=== PATIENT | female | born 1945 | race Caucasian/White ===

== ENCOUNTER 2022-05-01 09:59 | Inpatient (IN) ==
--- NOTE | 2022-05-01 10:26 | DR.AMS ---
HPI Time Seen Time Seen by Provider: 05/01/22 10:25 PCP Primary Care Physician: ABA DAVALOS HPI Comment HPI Comment: PATIENT IS 76YR OLD FEMALE IN ER WITH AMS TIMES ONE DAY. CONFUSE IN TRIAGE. Complaint Cheif Complaint Doctors Comments: AMS TIMES ONE DAY. Chief Complaint:: PT HAS HAD PERIODS OF INTERMITTENT CONFUSION SINCE YESTERDAY AFTERNOON WHERE SHE WILL HAVE PERIODS OF NOT UNDERSTANDING SIMPLE COMMANDS OR RECOGNIZING FAMILIAR ITEMS AROUND HER. AT TRIAGE PT IS ALERT TO PERSON AND PLACE BUT IS UNAWARE OF WHAT HAS BEEN GOING ON TO GET HER TO THE ER TODAY. DENIES ANY PAIN OR RECENT ILLNESS. Self Treatment fo Chief Complaint: PT WAS SEEN IN [facility] YESTERDAY COVID-19 Coronavirus risk:travel/contact w/high risk person: No Has patient experienced Coronavirus symptoms: No Source History Provided: Patient Mode of Arrival Mode of Arrival: Wheelchair Timing Onset of Chief Complaint: 04/30/22 PMH PMH Past Medical History: Yes Past Medical History: COPD and Hypertension Past Medical History Comment: FREQUENT UTI Past Surgical History: Yes Surgical History: Appendectomy and Ortho Surgery Family History History of Family Medical Conditions: Yes Family Medical History: Hypertension Social History Does patient currently use any type of tobacco product: No Have you used tobacco products in the last 12 months: No Type of Tobacco Use: None Does any household member use tobacco: No Alcohol Use: None Do you use any recreational Drugs:: No Lives With: Spouse Lives Where: Home Travel Risk Coronavirus risk:travel/contact w/high risk person: No Has patient experienced Coronavirus symptoms: No Infectious screening In the last 2 months have you had wt loss of >10#?: NO Have you had fever, night sweats or hemotysis?: No Have you traveled outside the country in the last 6 months?: No Isolation: Standard ROS Review of Systems Constitutional: No Symptoms Reported Eyes: No Symptoms Reported ENTM: No Symptoms Reported Respiratoy: No Symptoms Reported Cardiovascular: No Symptoms Reported Gastrointestinal/Abdominal: No Symptoms Reported Genitourinary: No Symptoms Reported Neurological: Other (CONFUSED.) Musculoskeletal: No Symptoms Reported Integumentary: No Symptoms Reported Hematologic/Lymphatic: No Symptoms Reported Endocrine: No Symptoms Reported Psychiatric: No Symptoms Reported All Other Systems: Reviewed and Negative PE Vitals Vital Signs: Temp Pulse Resp BP Pulse Ox O2 Del Method 05/01/22 14:57 20 05/01/22 14:31 75 97 05/01/22 13:30 78 96 05/01/22 13:15 75 95 05/01/22 13:11 76 93 L 05/01/22 11:15 80 94 L 05/01/22 11:04 86 94 L 05/01/22 10:45 95 05/01/22 10:33 72 92 L 05/01/22 10:16 97.6 F 73 20 126/66 97 Room Air General Limitations: No Limitations General Appearance: Alert and In No Apparent Distress Head Head Exam: Normal Inspection and Atraumatic Head Exam Physical: Other (NONE NOTED.) Eyes Eye exam: Normal Appearance; negative Scleral Icterus or Conjunctival Injection Neck Neck Exam: Normal Inspection Chest Chest Inspection: Normal Inspection Respiratory Respiratory Exam: Normal Lung Sounds Bilat Cardiovascular Cardiovascular Exam: Regular Rate Abdominal Exam Abdominal Exam: Normal Inspection Extremities Extremities Exam: Normal Inspection Back Back Exam: Normal Inspection Psychological Psychiatric Exam: Normal Affect Skin Skin Exam: Intact ROR Labs Reviewed Result Diagrams: 05/01/22 11:24 05/01/22 11:56 Laboratory: WBC 12.5 X10^3/uL (3.6-10.0) H 05/01/22 11:24 RBC 4.41 X10^6/uL (3.5-5.4) 05/01/22 11:24 Hgb 13.3 g/dL (12.0-16.0) 05/01/22 11:24 Hct 39.6 % (36.0-47.0) 05/01/22 11:24 MCV 89.7 fL (80.0-100.0) 05/01/22 11:24 MCH 30.1 pg (27.0-34.0) 05/01/22 11:24 MCHC 33.6 g/dL (33.0-35.0) 05/01/22 11:24 RDW 13.4 % (11.6-16.5) 05/01/22 11:24 Plt Count 352 X10^3/uL (150.0-450.0) 05/01/22 11:24 MPV 7.3 fL (7.4-11.0) L 05/01/22 11:24 Neut % (Auto) 74.7 % (42.0-75.0) 05/01/22 11:24 Lymph % (Auto) 15.9 % (21.0-51.0) L 05/01/22 11:24 Hans[place] % (Auto) 7.4 % (0.0-13.0) 05/01/22 11:24 Eos % (Auto) 1.4 % (0.9-2.9) 05/01/22 11:24 Baso % (Auto) 0.6 % (0.2-1.0) 05/01/22 11:24 Neut # (Auto) 9.3 x10^3/uL (2.2-4.8) H 05/01/22 11:24 Lymph # (Auto) 2.0 X10^3/uL (1.3-2.9) 05/01/22 11:24 [place] # (Auto) 0.9 x10^3/uL (0.3-0.8) H 05/01/22 11:24 Eos # (Auto) 0.2 x10^3/uL (0.0-0.2) 05/01/22 11:24 Baso # (Auto) 0.1 X10^3/uL (0.0-0.1) 05/01/22 11:24 Absolute Nucleated RBC 0.0 /100WBC 05/01/22 11:24 Sample Site Rra 05/01/22 11:15 ABG pH 7.500 (7.35-7.45) H 05/01/22 11:15 ABG pCO2 25.0 mmHg (35.0-45.0) L 05/01/22 11:15 ABG pO2 137.0 mmHg (80.0-100.0) H 05/01/22 11:15 ABG HCO3 19.5 mmol/L (22-26) L 05/01/22 11:15 ABG O2 Saturation 99.0 % (90-100) 05/01/22 11:15 ABG Base Excess -2.3 mmol/L (-2.0-2.0) L 05/01/22 11:15 Uriel Test Pos 05/01/22 11:15 A-a Gradient -19.0 mmHg 05/01/22 11:15 FiO2 21.0 05/01/22 11:15 Blood Gas Comments Pt nereida well eb 05/01/22 11:15 Sodium 133 mmol/L (136-145) L 05/01/22 11:56 Corrected Sodium TNP 05/01/22 11:56 Potassium 3.8 mmol/L (3.5-5.1) 05/01/22 11:56 Chloride 99 mmol/L (98-107) 05/01/22 11:56 Carbon Dioxide 23.5 mmol/L (21-32) 05/01/22 11:56 BUN 18 mg/dL (7-18) 05/01/22 11:56 Creatinine 0.88 mg/dL (0.55-1.02) 05/01/22 11:56 Est GFR (MDRD) Af Amer > 60 (>60) 05/01/22 11:56 Est GFR (MDRD) Non-Af > 60 (>60) 05/01/22 11:56 Glucose 85 mg/dL (65-99) 05/01/22 11:56 Calcium 8.8 mg/dL (8.5-10.1) 05/01/22 11:56 Corrected Calcium TNP 05/01/22 11:56 Total Bilirubin 0.60 mg/dL (0.2-1.0) 05/01/22 11:56 AST 27 Units/L (15-37) 05/01/22 11:56 ALT 22 Units/L (12-78) 05/01/22 11:56 Alkaline Phosphatase 99 Units/L (46-116) 05/01/22 11:56 Ammonia < 10 umol/L (11-32) L 05/01/22 11:56 Creatine Kinase 49 Units/L (26-192) 05/01/22 11:56 Troponin I High Sens 10.2 ng/L (4.0-60.0) 05/01/22 11:56 Total Protein 7.2 g/dL (6.4-8.2) 05/01/22 11:56 Albumin 3.8 g/dL (3.4-5.0) 05/01/22 11:56 Globulin 3.4 g/dL (2.5-4.5) 05/01/22 11:56 Albumin/Globulin Ratio 1.1 Ratio (1.1-2.1) 05/01/22 11:56 Specimen Type Clean catch urine 05/01/22 11:39 Urine Color Yellow (YELLOW) 05/01/22 11:39 Urine Appearance Clear (CLEAR) 05/01/22 11:39 Urine pH 6.5 (5.0 - 8.0) 05/01/22 11:39 Ur Specific [place] 1.010 (1.000-1.030) 05/01/22 11:39 Urine Protein 1+ (NEGATIVE) 05/01/22 11:39 Urine Glucose (UA) Negative (NEGATIVE) 05/01/22 11:39 Urine Ketones Negative (NEGATIVE) 05/01/22 11:39 Urine Blood Negative (NEGATIVE) 05/01/22 11:39 Urine Nitrite Negative (NEGATIVE) 05/01/22 11:39 Urine Bilirubin Negative (NEGATIVE) 05/01/22 11:39 Urine Urobilinogen Normal (NORMAL) 05/01/22 11:39 Ur Leukocyte Esterase 3+ (NEGATIVE) 05/01/22 11:39 Urine RBC 0-2 /HPF (0-3) 05/01/22 11:39 Urine WBC 3-5 /HPF (0-5) 05/01/22 11:39 Ur Squamous Epith Cells Few /HPF (NEGATIVE) 05/01/22 11:39 Urine Bacteria Negative /HPF (NEGATIVE) 05/01/22 11:39 Urine Yeast Few /HPF (NEGATIVE) 05/01/22 11:39 Ur Culture Indicated? Yes/culture set up 05/01/22 11:39 Opioid Opioid Risk Tool Age (Pavan box if 16-45): No History of Preadolescent Sexual Abuse: No Total: 0 Total Score Risk Category: Low Risk Copyright: Familia AQUINO predicting aberrant behaviors Discharge Plan Discharge Plan Patient Disposition: 01 HOME, SELF-CARE Condition: Stable Orders to Discharge Patient Discharge Orders: Transfer (Routine); Ordered 05/01/22 Ordered By: DERICK HOPPER
--- NOTE | 2022-05-01 11:13 | CT ---
HISTORYAltered mental statusSTUDYCT brain without contrastCOMPARISONNone availableTECHNIQUEMultiple axial images of the brain were obtained from the skull base to the vertex [without] administration of IV contrast.Dose reduction techniques including Automated Exposure Control (AEC) and adjustment of mA and kV were utlized.FINDINGS[No acute intraparenchymal hemorrhage or mass can be identified.] [No extra-axial fluid collections are seen.] [No alteration in the attenuation of the brain parenchyma can be identified to suggest acute or subacute ischemic change.] Extensive small vessel ischemic changes and age-appropriate atrophy are noted. 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 [The ventricular system is symmetric and nondilated.] [The extracranial structures are grossly unremarkable.]IMPRESSION[No acute intracranial process can be identified.]Electronically signed by: SYLVESTER WINSLOW (May 01, 2022 11:12:08)
--- NOTE | 2022-05-01 11:15 | EKG ---
Test Reason : HTN Blood Pressure : */* mmHG Vent. Rate : 80 BPM Atrial Rate : 80 BPM P-R Int : 210 ms QRS Dur : 80 ms QT Int : 408 ms P-R-T Axes : 60 -43 95 degrees QTc Int : 470 ms Sinus rhythm with 1st degree AV block Possible Left atrial enlargement Left axis deviation Abnormal QRS-T angle, consider primary T wave abnormality Abnormal ECG No previous ECGs available Confirmed by Regan Fang ([id number]) on 05/01/2022 5:41:35 PM Referred By: Confirmed By: Regan Fang
[2022-05-01 11:17] LABS: ABG BASE EXCESS -2.3 mmol/L (-2.0-2.0); ABG HCO3 19.5 mmol/L (22-26)
[2022-05-01 11:19] LABS: ABG ALLEN TEST POS
[2022-05-01 11:36] LABS: BASOPHILS # (AUTO) 0.1 X10^3/uL (0.0-0.1); BASOPHILS % (AUTO) 0.6 % (0.2-1.0); EOSINOPHILS # (AUTO) 0.2 x10^3/uL (0.0-0.2); EOSINOPHILS % (AUTO) 1.4 % (0.9-2.9); HEMATOCRIT 39.6 % (36.0-47.0); HEMOGLOBIN 13.3 g/dL (12.0-16.0); LYMPHOCYTES % (AUTO) 15.9 % (21.0-51.0); MEAN CORPUSCULAR HEMOGLOBIN 30.1 pg (27.0-34.0); MEAN CORPUSCULAR HGB CONC 33.6 g/dL (33.0-35.0); MEAN CORPUSCULAR VOLUME 89.7 fL (80.0-100.0); MEAN PLATELET VOLUME 7.3 fL (7.4-11.0); MONOCYTES # (AUTO) 0.9 x10^3/uL (0.3-0.8); MONOCYTES % (AUTO) 7.4 % (0.0-13.0); NEUTROPHILS # (AUTO) 9.3 x10^3/uL (2.2-4.8); NEUTROPHILS % (AUTO) 74.7 % (42.0-75.0); RED BLOOD COUNT 4.41 X10^6/uL (3.5-5.4); RED CELL DISTRIBUTION WIDTH 13.4 % (11.6-16.5); WHITE BLOOD COUNT 12.5 X10^3/uL (3.6-10.0)
[2022-05-01 11:49] LABS: BILIRUBIN,URINE NEGATIVE (NEGATIVE); BLOOD/HEMOGLOBIN,URINE NEGATIVE (NEGATIVE); GLUCOSE, URINE NEGATIVE (NEGATIVE); KETONES,URINE NEGATIVE (NEGATIVE); LEUKOCYTE ESTERASE ,URINE 3+ (NEGATIVE); NITRITES,URINE NEGATIVE (NEGATIVE); PH,URINE 6.5 (5.0 - 8.0); PROTEIN,URINE 1+ (NEGATIVE); UROBILINOGEN,URINE NORMAL (NORMAL)
[2022-05-01 11:52] LABS: ALANINE AMINOTRANSFERASE 22 Units/L (12-78); ALBUMIN 3.8 g/dL (3.4-5.0); ALKALINE PHOSPHATASE 99 Units/L (46-116); ASPARTATE AMINO TRANSFERASE 27 Units/L (15-37); BLOOD UREA NITROGEN 18 mg/dL (7-18); CALCIUM 8.8 mg/dL (8.5-10.1); CARBON DIOXIDE 23.5 mmol/L (21-32); CHLORIDE 99 mmol/L (98-107); CREATINE KINASE 49 Units/L (26-192); CREATININE 0.88 mg/dL (0.55-1.02); SODIUM 133 mmol/L (136-145); TOTAL PROTEIN 7.2 g/dL (6.4-8.2); eGFR NON BLACK RACES > 60 (>60)
[2022-05-01 12:00] LABS: APPEARANCE,URINE CLEAR (CLEAR); COLOR,URINE YELLOW (YELLOW)
[2022-05-01 12:01] LABS: BACTERIA,URINE NEGATIVE /HPF (NEGATIVE); RBC,URINE 0-2 /HPF (0-3); SQUAMOUS EPITHELIAL CELL,UR FEW /HPF (NEGATIVE); YEAST,URINE FEW /HPF (NEGATIVE)
[2022-05-01 12:23] LABS: AMMONIA < 10 umol/L (11-32)
[2022-05-01] MEDS ORDERED: LEVAQUIN PREMIX IV 500 MG 500 MG/100 ML BAG IV ONE ×2 (15:18→15:23)
--- NOTE | 2022-05-01 16:49 | EKG ---
Test Reason : sob Blood Pressure : */* mmHG Vent. Rate : 64 BPM Atrial Rate : 64 BPM P-R Int : 198 ms QRS Dur : 76 ms QT Int : 438 ms P-R-T Axes : 53 -33 88 degrees QTc Int : 451 ms Normal sinus rhythm Possible Left atrial enlargement Left axis deviation Cannot rule out Anterior infarct , age undetermined Abnormal ECG with 1st degree AV block When compared with ECG of 01-MAY-2022 11:13, (Unconfirmed) No significant change was found Confirmed by Regan Fang ([id number]) on 05/01/2022 5:38:47 PM Referred By: Confirmed By: Regan Fang
[2022-05-01] MEDS: NS 1,000 ML IV 1,000 ML IV SCH (17:01)
[2022-05-01] MEDS ORDERED: LEVAQUIN PREMIX IV 500 MG IV ONE (17:02)
[2022-05-01] MEDS: PROVENTIL NEB TX 0.083% 2.5MG/ 3ML IN PRN (20:58)
--- NOTE | 2022-05-01 23:07 | EKG ---
Test Reason : AMS Blood Pressure : */* mmHG Vent. Rate : 64 BPM Atrial Rate : 64 BPM P-R Int : 204 ms QRS Dur : 88 ms QT Int : 458 ms P-R-T Axes : 49 -10 83 degrees QTc Int : 472 ms Normal sinus rhythm Minimal voltage criteria for LVH, may be normal variant ( Mikel product ) Borderline ECG When compared with ECG of 01-MAY-2022 16:41, Minimal criteria for Anterior infarct are no longer present Confirmed by Regan Fang ([id number]) on 05/03/2022 6:05:38 PM Referred By: Confirmed By: Regan Fang
[2022-05-02] MEDS: NS 1,000 ML IV 1,000 ML IV SCH ×2 (05:13→21:00)
[2022-05-02 06:05] LABS: BASOPHILS # (AUTO) 0.1 X10^3/uL (0.0-0.1); BASOPHILS % (AUTO) 0.9 % (0.2-1.0); EOSINOPHILS # (AUTO) 0.3 x10^3/uL (0.0-0.2); EOSINOPHILS % (AUTO) 2.4 % (0.9-2.9); HEMATOCRIT 36.1 % (36.0-47.0); HEMOGLOBIN 12.2 g/dL (12.0-16.0); LYMPHOCYTES # (AUTO) 2.6 X10^3/uL (1.3-2.9); LYMPHOCYTES % (AUTO) 23.2 % (21.0-51.0); MEAN CORPUSCULAR HEMOGLOBIN 30.4 pg (27.0-34.0); MEAN CORPUSCULAR VOLUME 89.5 fL (80.0-100.0); MEAN PLATELET VOLUME 7.3 fL (7.4-11.0); MONOCYTES # (AUTO) 1.3 x10^3/uL (0.3-0.8); MONOCYTES % (AUTO) 11.1 % (0.0-13.0); NEUTROPHILS # (AUTO) 7.1 x10^3/uL (2.2-4.8); NEUTROPHILS % (AUTO) 62.4 % (42.0-75.0); RED BLOOD COUNT 4.03 X10^6/uL (3.5-5.4); RED CELL DISTRIBUTION WIDTH 13.3 % (11.6-16.5); WHITE BLOOD COUNT 11.3 X10^3/uL (3.6-10.0)
[2022-05-02 06:34] LABS: ALANINE AMINOTRANSFERASE 18 Units/L (12-78); ALBUMIN 3.2 g/dL (3.4-5.0); ALKALINE PHOSPHATASE 86 Units/L (46-116); ASPARTATE AMINO TRANSFERASE 26 Units/L (15-37); BLOOD UREA NITROGEN 19 mg/dL (7-18); CALCIUM 8.3 mg/dL (8.5-10.1); CARBON DIOXIDE 23.7 mmol/L (21-32); CHLORIDE 105 mmol/L (98-107); COR CA(FOR HYPOALB) 8.9 mg/dL (8.5-10.1); CREATININE 0.77 mg/dL (0.55-1.02); SODIUM 137 mmol/L (136-145); TOTAL PROTEIN 6.3 g/dL (6.4-8.2); eGFR NON BLACK RACES > 60 (>60)
[2022-05-02] MEDS: TOPROL XL PO SCH (09:41)
[2022-05-02] MEDS: LEVAQUIN PREMIX IV 500 MG 500 MG/100 ML BAG IV SCH (09:41)
[2022-05-02] MEDS: LIPITOR TAB 10 MG PO SCH (09:41)
[2022-05-02] MEDS: LOVENOX INJ 40 MG SYR SC SCH (14:36)
[2022-05-02] MEDS: PROVENTIL NEB TX 0.083% 2.5MG/ 3ML IN PRN (20:05)
--- NOTE | 2022-05-02 21:41 | DR.H&P ---
H&P History & Physical for Day of: H&P Date: 05/02/22 Chief Complaint Chief Complaint: Altered mental status Dysuria Allergies Allergies Allergy/AdvReac Type Severity Reaction Status Date / Time codeine Allergy Verified 05/01/22 10:21 History of Present Illness History of Present Illness: Pt is a 76 year old female past medical history of COPD and Hypertension presenting with dysuria for the past 3-4 days and per has been gradually getting more confused during that time. Denies fevers, chills. Labs/imaging: Wbc 11.3, Hgb 12.2, Plt 329, Na 137, K 3.7, C reatinine 0.77, Glucose 100, UA consistent with infection, Urine culture pending, CT head was obtained that revealed no acute intracranial findings. Pt is admitted with acute cystitis and altered mental status that is likely related to primary etiology. Will start patient on IVF NS@75ml/h and antibiotics IV levaquin. Restart home medications. Continue to closely monitor and follow up lab in the morning. Past Medical History Past Medical History: COPD and Hypertension Past Surgical History Surgical History: Appendectomy and Ortho Surgery Family History Family Medical History: Hypertension Social History Does patient currently use any type of tobacco product: No (quit 5 years ago) Have you used tobacco products in the last 12 months: No Type of Tobacco Use: None Does any household member use tobacco: No Alcohol Use: None Medications Home Medications: codeine Allergy (Verified 05/01/22 10:21) CONTINUE taking the following medications albuterol sulfate 2.5 mg/3 mL (0.083 %) solution for nebulization 2.5 mg inhalation Q4H PRN 05/01/22 [History] atorvastatin 10 mg tablet 10 mg PO DAILY 05/01/22 [History] cyanocobalamin (vitamin B-12) 1,000 mcg/mL injection solution 1,000 mcg IM Q2W 05/01/22 [History] fluticasone fur. 100 mcg-umeclid 62.5 mcg-vilant 25 mcg inhalat.powder (Trelegy Ellipta) 1 inh inhalation DAILY 05/01/22 [History] metoprolol succinate 25 mg tablet,extended release 24 hr 25 mg PO DAILY 05/01/22 [History] pantoprazole 40 mg tablet,delayed release 40 mg PO DAILY 05/01/22 [History] Labs Result Diagrams: 05/02/22 05:49 05/02/22 05:49 Labs: 05/01/22 11:39 Urine,Clean Catch Urine Culture - Preliminary Laboratory WBC 11.3 X10^3/uL (3.6-10.0) H 05/02/22 05:49 RBC 4.03 X10^6/uL (3.5-5.4) 05/02/22 05:49 Hgb 12.2 g/dL (12.0-16.0) 05/02/22 05:49 Hct 36.1 % (36.0-47.0) 05/02/22 05:49 MCV 89.5 fL (80.0-100.0) 05/02/22 05:49 MCH 30.4 pg (27.0-34.0) 05/02/22 05:49 MCHC 34.0 g/dL (33.0-35.0) 05/02/22 05:49 RDW 13.3 % (11.6-16.5) 05/02/22 05:49 Plt Count 329 X10^3/uL (150.0-450.0) 05/02/22 05:49 MPV 7.3 fL (7.4-11.0) L 05/02/22 05:49 Neut % (Auto) 62.4 % (42.0-75.0) 05/02/22 05:49 Lymph % (Auto) 23.2 % (21.0-51.0) 05/02/22 05:49 [place] % (Auto) 11.1 % (0.0-13.0) 05/02/22 05:49 Eos % (Auto) 2.4 % (0.9-2.9) 05/02/22 05:49 Baso % (Auto) 0.9 % (0.2-1.0) 05/02/22 05:49 Neut # (Auto) 7.1 x10^3/uL (2.2-4.8) H 05/02/22 05:49 Lymph # (Auto) 2.6 X10^3/uL (1.3-2.9) 05/02/22 05:49 [place] # (Auto) 1.3 x10^3/uL (0.3-0.8) H 05/02/22 05:49 Eos # (Auto) 0.3 x10^3/uL (0.0-0.2) H 05/02/22 05:49 Baso # (Auto) 0.1 X10^3/uL (0.0-0.1) 05/02/22 05:49 Absolute Nucleated RBC 0.0 /100WBC 05/02/22 05:49 Sample Site Rra 05/01/22 11:15 ABG pH 7.500 (7.35-7.45) H 05/01/22 11:15 ABG pCO2 25.0 mmHg (35.0-45.0) L 05/01/22 11:15 ABG pO2 137.0 mmHg (80.0-100.0) H 05/01/22 11:15 ABG HCO3 19.5 mmol/L (22-26) L 05/01/22 11:15 ABG O2 Saturation 99.0 % (90-100) 05/01/22 11:15 ABG Base Excess -2.3 mmol/L (-2.0-2.0) L 05/01/22 11:15 Uriel Test Pos 05/01/22 11:15 A-a Gradient -19.0 mmHg 05/01/22 11:15 FiO2 21.0 05/01/22 11:15 Blood Gas Comments Pt nereida well eb 05/01/22 11:15 Sodium 137 mmol/L (136-145) 05/02/22 05:49 Corrected Sodium TNP 05/02/22 05:49 Potassium 3.7 mmol/L (3.5-5.1) 05/02/22 05:49 Chloride 105 mmol/L (98-107) 05/02/22 05:49 Carbon Dioxide 23.7 mmol/L (21-32) 05/02/22 05:49 BUN 19 mg/dL (7-18) H 05/02/22 05:49 Creatinine 0.77 mg/dL (0.55-1.02) 05/02/22 05:49 Est GFR (MDRD) Af Amer > 60 (>60) 05/02/22 05:49 Est GFR (MDRD) Non-Af > 60 (>60) 05/02/22 05:49 Glucose 100 mg/dL (65-99) H 05/02/22 05:49 Calcium 8.3 mg/dL (8.5-10.1) L 05/02/22 05:49 Corrected Calcium 8.9 mg/dL (8.5-10.1) 05/02/22 05:49 Total Bilirubin 0.40 mg/dL (0.2-1.0) 05/02/22 05:49 AST 26 Units/L (15-37) 05/02/22 05:49 ALT 18 Units/L (12-78) 05/02/22 05:49 Alkaline Phosphatase 86 Units/L (46-116) 05/02/22 05:49 Ammonia < 10 umol/L (11-32) L 05/01/22 11:56 Creatine Kinase 50 Units/L (26-192) 05/01/22 16:05 Troponin I High Sens 10.4 ng/L (4.0-60.0) 05/01/22 16:05 Total Protein 6.3 g/dL (6.4-8.2) L 05/02/22 05:49 Albumin 3.2 g/dL (3.4-5.0) L 05/02/22 05:49 Globulin 3.1 g/dL (2.5-4.5) 05/02/22 05:49 Albumin/Globulin Ratio 1.0 Ratio (1.1-2.1) L 05/02/22 05:49 Specimen Type Clean catch urine 05/01/22 11:39 Urine Color Yellow (YELLOW) 05/01/22 11:39 Urine Appearance Clear (CLEAR) 05/01/22 11:39 Urine pH 6.5 (5.0 - 8.0) 05/01/22 11:39 Ur Specific [place] 1.010 (1.000-1.030) 05/01/22 11:39 Urine Protein 1+ (NEGATIVE) 05/01/22 11:39 Urine Glucose (UA) Negative (NEGATIVE) 05/01/22 11:39 Urine Ketones Negative (NEGATIVE) 05/01/22 11:39 Urine Blood Negative (NEGATIVE) 05/01/22 11:39 Urine Nitrite Negative (NEGATIVE) 05/01/22 11:39 Urine Bilirubin Negative (NEGATIVE) 05/01/22 11:39 Urine Urobilinogen Normal (NORMAL) 05/01/22 11:39 Ur Leukocyte Esterase 3+ (NEGATIVE) 05/01/22 11:39 Urine RBC 0-2 /HPF (0-3) 05/01/22 11:39 Urine WBC 3-5 /HPF (0-5) 05/01/22 11:39 Ur Squamous Epith Cells Few /HPF (NEGATIVE) 05/01/22 11:39 Urine Bacteria Negative /HPF (NEGATIVE) 05/01/22 11:39 Urine Yeast Few /HPF (NEGATIVE) 05/01/22 11:39 Ur Culture Indicated? Yes/culture set up 05/01/22 11:39 Review of Systems Constitutional: Weakness Eyes: No Symptoms Reported ENT: No Symptoms Reported Respiratory: No Symptoms Reported Cardiovascular: No Symptoms Reported Gastrointestinal: No Symptoms Reported Genitourinary: Dysuria Musculoskeletal: No Symptoms Reported Skin: No Symptoms Reported Neurological: Confusion Physical Exam Vital Signs: Temperature 97.7 F Pulse Rate [Right Brachial] 84 Pulse Rate 76 Respiratory Rate 20 Blood Pressure [Left Arm] 132/60 Blood Pressure [Right Arm] 182/87 Blood Pressure 126/66 O2 Sat by Pulse Oximetry 98 Oriented: Normal Eyes: Normal Ear: Normal Nose: Normal Throat: Normal Respiratory: Clear Throughout Cardiovascular: Normal : Normal Auscultation: Bowel Sounds: Normal Palpation: Normal Tenderness: Normal Skin: Normal Musculoskeletal: Normal Psychiatric: Normal Mood Description: Calm and Appropriate Affect: Normal Speech Pattern: Clear and Appropriate Assessment/Plan (1) Acute cystitis: Narrative Support Text: IV Levaquin Urine culture pending Status: Acute (2) Altered mental status: Status: Acute Review H&P Reviewed: Yes Patient was examined?: Yes
[2022-05-03 06:21] LABS: ALANINE AMINOTRANSFERASE 19 Units/L (12-78); ALBUMIN 3.3 g/dL (3.4-5.0); ALKALINE PHOSPHATASE 92 Units/L (46-116); ASPARTATE AMINO TRANSFERASE 23 Units/L (15-37); BASOPHILS % (AUTO) 0.4 % (0.2-1.0); BLOOD UREA NITROGEN 12 mg/dL (7-18); CALCIUM 8.5 mg/dL (8.5-10.1); CARBON DIOXIDE 23.3 mmol/L (21-32); CHLORIDE 104 mmol/L (98-107); COR CA(FOR HYPOALB) 9.1 mg/dL (8.5-10.1); CREATININE 0.63 mg/dL (0.55-1.02); EOSINOPHILS # (AUTO) 0.3 x10^3/uL (0.0-0.2); EOSINOPHILS % (AUTO) 2.1 % (0.9-2.9); HEMATOCRIT 34.4 % (36.0-47.0); HEMOGLOBIN 11.9 g/dL (12.0-16.0); LYMPHOCYTES % (AUTO) 16.1 % (21.0-51.0); MEAN CORPUSCULAR HEMOGLOBIN 30.7 pg (27.0-34.0); MEAN CORPUSCULAR HGB CONC 34.6 g/dL (33.0-35.0); MEAN CORPUSCULAR VOLUME 88.7 fL (80.0-100.0); MEAN PLATELET VOLUME 7.4 fL (7.4-11.0); MONOCYTES # (AUTO) 1.5 x10^3/uL (0.3-0.8); MONOCYTES % (AUTO) 12.1 % (0.0-13.0); NEUTROPHILS # (AUTO) 8.6 x10^3/uL (2.2-4.8); NEUTROPHILS % (AUTO) 69.3 % (42.0-75.0); RED BLOOD COUNT 3.88 X10^6/uL (3.5-5.4); RED CELL DISTRIBUTION WIDTH 12.8 % (11.6-16.5); SODIUM 136 mmol/L (136-145); TOTAL PROTEIN 6.5 g/dL (6.4-8.2); WHITE BLOOD COUNT 12.4 X10^3/uL (3.6-10.0); eGFR NON BLACK RACES > 60 (>60)
[2022-05-03] MEDS ORDERED: POTASSIUM CHL 40 MEQ/NS 0.45% 500 ML IV PRN (08:01)
[2022-05-03] MEDS ORDERED: K-RIDER 10 MEQ/NS 100 ML 10 MEQ/100 ML BAG IV PRN (08:01)
[2022-05-03] MEDS ORDERED: POTASSIUM CHL 60 MEQ/NS 0.45% 500 ML IV PRN (08:01)
[2022-05-03] MEDS ORDERED: MICRO K EXTEN CAP 10 MEQ PO PRN (08:01)
[2022-05-03] MEDS ORDERED: POTASSIUM CHLORIDE LIQ 20 MEQ UDC PO PRN (08:01)
[2022-05-03] MEDS: LOVENOX INJ 40 MG SYR SC SCH (08:14)
[2022-05-03] MEDS: LEVAQUIN PREMIX IV 500 MG 500 MG/100 ML BAG IV SCH (08:15)
[2022-05-03] MEDS: TOPROL XL PO SCH (08:16)
[2022-05-03] MEDS: LIPITOR TAB 10 MG PO SCH (08:16)
[2022-05-03] MEDS: K-DUR TAB 20 MEQ PO PRN (08:19)
[2022-05-03] MEDS: PROVENTIL NEB TX 0.083% 2.5MG/ 3ML IN PRN (08:53)
[2022-05-03] MEDS: NS 1,000 ML IV 1,000 ML IV SCH ×2 (09:22→20:55)
[2022-05-03] MEDS: PROTONIX TAB 40 MG PO SCH (09:51)
[2022-05-03] MEDS: MAGNESIUM SULFATE 1 GRAM/100 mL PREMIX 1 G/100 ML BAG IV PRN (09:52)
[2022-05-03] MEDS ORDERED: ZOFRAN INJ 4 MG VIAL ONE (10:05)
[2022-05-03] MEDS: ZOFRAN INJ 4 MG VIAL IVP PRN ×3 (10:06→10:58)
[2022-05-03] MEDS: ZOSYN VIAL 3.375 GRAMS 3.375 G in NS 100 ML IV 100 ML IV SCH ×3 (12:54→22:00)
[2022-05-03] MEDS ORDERED: CATAPRES TAB 0.1 MG PO ONE (19:51)
[2022-05-04 05:35] LABS: BASOPHILS % (AUTO) 0.4 % (0.2-1.0); EOSINOPHILS # (AUTO) 0.1 x10^3/uL (0.0-0.2); EOSINOPHILS % (AUTO) 1.1 % (0.9-2.9); HEMATOCRIT 33.5 % (36.0-47.0); HEMOGLOBIN 11.5 g/dL (12.0-16.0); LYMPHOCYTES % (AUTO) 15.9 % (21.0-51.0); MEAN CORPUSCULAR HEMOGLOBIN 30.6 pg (27.0-34.0); MEAN CORPUSCULAR HGB CONC 34.5 g/dL (33.0-35.0); MEAN CORPUSCULAR VOLUME 88.9 fL (80.0-100.0); MEAN PLATELET VOLUME 7.4 fL (7.4-11.0); MONOCYTES # (AUTO) 1.6 x10^3/uL (0.3-0.8); MONOCYTES % (AUTO) 13.1 % (0.0-13.0); NEUTROPHILS # (AUTO) 8.7 x10^3/uL (2.2-4.8); NEUTROPHILS % (AUTO) 69.5 % (42.0-75.0); RED BLOOD COUNT 3.77 X10^6/uL (3.5-5.4); RED CELL DISTRIBUTION WIDTH 13.3 % (11.6-16.5); WHITE BLOOD COUNT 12.5 X10^3/uL (3.6-10.0)
[2022-05-04 05:55] LABS: ALANINE AMINOTRANSFERASE 24 Units/L (12-78); ALBUMIN 3.2 g/dL (3.4-5.0); ALKALINE PHOSPHATASE 89 Units/L (46-116); ASPARTATE AMINO TRANSFERASE 28 Units/L (15-37); BLOOD UREA NITROGEN 11 mg/dL (7-18); CALCIUM 8.6 mg/dL (8.5-10.1); CARBON DIOXIDE 24.6 mmol/L (21-32); CHLORIDE 101 mmol/L (98-107); COR CA(FOR HYPOALB) 9.2 mg/dL (8.5-10.1); COR NA(FOR HYPERGLY) 133 mmol/L (136-145); CREATININE 0.81 mg/dL (0.55-1.02); MAGNESIUM 1.8 mg/dL (2.0-2.9); SODIUM 133 mmol/L (136-145); TOTAL PROTEIN 6.6 g/dL (6.4-8.2); eGFR NON BLACK RACES > 60 (>60)
[2022-05-04] MEDS: ZOSYN VIAL 3.375 GRAMS 3.375 G in NS 100 ML IV 100 ML IV SCH ×3 (06:00→21:12)
[2022-05-04] MEDS ORDERED: TORADOL 60 MG VIAL IM ONE (08:05)
[2022-05-04] MEDS: TOPROL XL PO SCH (09:07)
[2022-05-04] MEDS: LIPITOR TAB 10 MG PO SCH (09:07)
[2022-05-04] MEDS: LEVAQUIN PREMIX IV 500 MG 500 MG/100 ML BAG IV SCH (09:07)
[2022-05-04] MEDS: LOVENOX INJ 40 MG SYR SC SCH (09:07)
[2022-05-04] MEDS: PROTONIX TAB 40 MG PO SCH (09:07)
[2022-05-04] MEDS ORDERED: MORPHINE SULFATE INJ 2 MG INJ IVP PRN (09:14)
[2022-05-04] MEDS: NS 1,000 ML IV 1,000 ML IV SCH ×2 (09:54→22:00)
[2022-05-04] MEDS: PROVENTIL NEB TX 0.083% 2.5MG/ 3ML IN PRN (13:30)
[2022-05-04] MEDS ORDERED: TYLENOL 325 MG TAB PO PRN (14:27)
[2022-05-04] MEDS ORDERED: COLACE CAP 100 MG PO PRN (14:28)
[2022-05-04] MEDS: NAPROSYN PO PRN (16:04)
[2022-05-04] MEDS ORDERED: CATAPRES TAB 0.1 MG PO ONE (16:50)
--- NOTE | 2022-05-04 17:27 | CT ---
HISTORYLT KNEE PAIN, SWELLING.STUDYLOWER EXT W/O CONCOMPARISONNoneTECHNIQUEMultiple axial images of the left knee were obtained without IV contrast. Coronal and sagittal reformats were made and reviewed. Dose reduction techniques included Automated Exposure Control (AEC) and adjustment of mA and kV.FINDINGSImages were obtained from the distal femur to the proximal tibia.The bones are diffusely demineralized. A large suprapatellar recess joint effusion is present.Intramedullary bone lesion is noted in the proximal tibia extending from the proximal diaphysis more proximally to the articular surface of the medial tibia. Well corticated margins suggests that this may be an old bone infarct. There are chondroid type calcifications internally so the differential diagnosis may be an enchondroma.But there is deformity of the medial tibial plateau suggesting possible fracture. I believe this represents a fracture of articular surface of the medial tibial plateau. The fragment is depressed by about 3 mm. Since this extends into the previously described bone lesion, this is probably pathologic.There are also osteoarthritic changes in all 3 compartments, most severe in the lateral femoral/tibial compartment. No dislocation.IMPRESSION1. Findings suggesting medial tibial plateau depressed fracture2. 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 Large joint effusion4. OsteoarthritisElectronically signed by: Navid Crowley (May 04, 2022 17:26:11)
[2022-05-04] MEDS: RESTORIL CAP 15 MG PO PRN (21:16)
[2022-05-05] MEDS: MAGNESIUM SULFATE 1 GRAM/100 mL PREMIX 1 G/100 ML BAG IV PRN ×2 (00:16→01:26)
[2022-05-05 05:11] LABS: BASOPHILS % (AUTO) 0.3 % (0.2-1.0); EOSINOPHILS # (AUTO) 0.1 x10^3/uL (0.0-0.2); EOSINOPHILS % (AUTO) 1.2 % (0.9-2.9); HEMATOCRIT 30.3 % (36.0-47.0); HEMOGLOBIN 10.5 g/dL (12.0-16.0); LYMPHOCYTES # (AUTO) 2.3 X10^3/uL (1.3-2.9); LYMPHOCYTES % (AUTO) 19.6 % (21.0-51.0); MEAN CORPUSCULAR HEMOGLOBIN 30.7 pg (27.0-34.0); MEAN CORPUSCULAR HGB CONC 34.5 g/dL (33.0-35.0); MEAN CORPUSCULAR VOLUME 88.8 fL (80.0-100.0); MEAN PLATELET VOLUME 7.7 fL (7.4-11.0); MONOCYTES # (AUTO) 1.8 x10^3/uL (0.3-0.8); MONOCYTES % (AUTO) 15.4 % (0.0-13.0); NEUTROPHILS # (AUTO) 7.6 x10^3/uL (2.2-4.8); NEUTROPHILS % (AUTO) 63.5 % (42.0-75.0); RED BLOOD COUNT 3.41 X10^6/uL (3.5-5.4); RED CELL DISTRIBUTION WIDTH 13.1 % (11.6-16.5)
[2022-05-05 05:19] LABS: ALANINE AMINOTRANSFERASE 21 Units/L (12-78); ALBUMIN 2.7 g/dL (3.4-5.0); ALKALINE PHOSPHATASE 74 Units/L (46-116); ASPARTATE AMINO TRANSFERASE 21 Units/L (15-37); BLOOD UREA NITROGEN 9 mg/dL (7-18); CALCIUM 8.2 mg/dL (8.5-10.1); CARBON DIOXIDE 24.3 mmol/L (21-32); CHLORIDE 101 mmol/L (98-107); COR CA(FOR HYPOALB) 9.2 mg/dL (8.5-10.1); CREATININE 0.75 mg/dL (0.55-1.02); MAGNESIUM 2.6 mg/dL (2.0-2.9); SODIUM 134 mmol/L (136-145); TOTAL PROTEIN 5.6 g/dL (6.4-8.2); eGFR NON BLACK RACES > 60 (>60)
[2022-05-05] MEDS: ZOSYN VIAL 3.375 GRAMS 3.375 G in NS 100 ML IV 100 ML IV SCH ×3 (05:22→21:00)
--- NOTE | 2022-05-05 07:34 | PCM.PROG ---
Progress Note Progress Note for Day of Date of Exam: 05/03/22 Subjective Subjective: Pt is a 76 year old female past medical history of COPD and Hypertension admitted for failing outpatient treatment for cystitis and altered mental status. This morning patient is resting in bed. Her states that she is slightly better than yesterday and confusion is improving. No acute events overnight. Labs/imaging: Wbc 12.4, Hgb 11.9, Plt 305, Na 136, K 3.2, Creatinine 0.63, Glucose 107, UA consistent with infection, Urine culture pending, CT head was obtained that revealed no acute intracranial findings. Pt is currently on IVF NS@75ml/h and antibiotics IV levaquin. Home medications have been resumed. Hypokalemia on labs, will replete per protocol. Otherwise, will continue with current treatment plan. Continue to closely monitor and follow up lab in the morning. Past Medical Family Social History Allergies: Allergies codeine Allergy (Verified 05/01/22 10:21) Review of Systems ROS changes noted: See HPI Vital Signs and I&O's Vital Signs: Temperature 97.9 F Pulse Rate [Right Brachial] 76 Pulse Rate 88 Respiratory Rate 18 Blood Pressure [Left Arm] 130/59 Blood Pressure [Right Arm] 182/87 Blood Pressure 126/66 O2 Sat by Pulse Oximetry 100 Intake and Output: Intake & Output 05/02/22 05/03/22 05/04/22 05/05/22 23:59 23:59 23:59 23:59 Intake Total 2379 / 2379 1764 / 1764 2175 / 2175 1160 / 1160 Output Total 1100 / 1100 1500 / 1500 600 / 600 900 / 900 Balance 1279 / 1279 264 / 264 1575 / 1575 260 / 260 Physical Exam Oriented: Normal Eyes: Normal Ear: Normal Nose: Normal Throat: Normal Respiratory: Normal Cardiovascular: Normal : Normal Auscultation: Bowel Sounds: Normal Palpation: Normal Tenderness: Normal Skin: Normal Musculoskeletal: Normal Psychiatric: Normal Mood Description: Calm and Appropriate Affect: Normal Speech Pattern: Clear and Appropriate Laboratory and Diagnostics Result Diagrams: 05/05/22 04:20 05/05/22 04:20 Labs: 05/01/22 11:39 Urine,Clean Catch Urine Culture - Final Laboratory WBC 12.0 X10^3/uL (3.6-10.0) H 05/05/22 04:20 RBC 3.41 X10^6/uL (3.5-5.4) L 05/05/22 04:20 Hgb 10.5 g/dL (12.0-16.0) L 05/05/22 04:20 Hct 30.3 % (36.0-47.0) L 05/05/22 04:20 MCV 88.8 fL (80.0-100.0) 05/05/22 04:20 MCH 30.7 pg (27.0-34.0) 05/05/22 04:20 MCHC 34.5 g/dL (33.0-35.0) 05/05/22 04:20 RDW 13.1 % (11.6-16.5) 05/05/22 04:20 Plt Count 281 X10^3/uL (150.0-450.0) 05/05/22 04:20 MPV 7.7 fL (7.4-11.0) 05/05/22 04:20 Neut % (Auto) 63.5 % (42.0-75.0) 05/05/22 04:20 Lymph % (Auto) 19.6 % (21.0-51.0) L 05/05/22 04:20 [place] % (Auto) 15.4 % (0.0-13.0) H 05/05/22 04:20 Eos % (Auto) 1.2 % (0.9-2.9) 05/05/22 04:20 Baso % (Auto) 0.3 % (0.2-1.0) 05/05/22 04:20 Neut # (Auto) 7.6 x10^3/uL (2.2-4.8) H 05/05/22 04:20 Lymph # (Auto) 2.3 X10^3/uL (1.3-2.9) 05/05/22 04:20 [place] # (Auto) 1.8 x10^3/uL (0.3-0.8) H 05/05/22 04:20 Eos # (Auto) 0.1 x10^3/uL (0.0-0.2) 05/05/22 04:20 Baso # (Auto) 0.0 X10^3/uL (0.0-0.1) 05/05/22 04:20 Absolute Nucleated RBC 0.0 /100WBC 05/05/22 04:20 Sample Site Rra 05/01/22 11:15 ABG pH 7.500 (7.35-7.45) H 05/01/22 11:15 ABG pCO2 25.0 mmHg (35.0-45.0) L 05/01/22 11:15 ABG pO2 137.0 mmHg (80.0-100.0) H 05/01/22 11:15 ABG HCO3 19.5 mmol/L (22-26) L 05/01/22 11:15 ABG O2 Saturation 99.0 % (90-100) 05/01/22 11:15 ABG Base Excess -2.3 mmol/L (-2.0-2.0) L 05/01/22 11:15 Uriel Test Pos 05/01/22 11:15 A-a Gradient -19.0 mmHg 05/01/22 11:15 FiO2 21.0 05/01/22 11:15 Blood Gas Comments Pt nerieda well eb 05/01/22 11:15 Sodium 134 mmol/L (136-145) L 05/05/22 04:20 Corrected Sodium TNP 05/05/22 04:20 Potassium 3.6 mmol/L (3.5-5.1) 05/05/22 04:20 Chloride 101 mmol/L (98-107) 05/05/22 04:20 Carbon Dioxide 24.3 mmol/L (21-32) 05/05/22 04:20 BUN 9 mg/dL (7-18) 05/05/22 04:20 Creatinine 0.75 mg/dL (0.55-1.02) 05/05/22 04:20 Est GFR (MDRD) Af Amer > 60 (>60) 05/05/22 04:20 Est GFR (MDRD) Non-Af > 60 (>60) 05/05/22 04:20 Glucose 110 mg/dL (65-99) H 05/05/22 04:20 Uric Acid 2.5 mg/dL (2.6-6.0) L 05/04/22 15:20 Calcium 8.2 mg/dL (8.5-10.1) L 05/05/22 04:20 Corrected Calcium 9.2 mg/dL (8.5-10.1) 05/05/22 04:20 Magnesium 2.6 mg/dL (2.0-2.9) 05/05/22 04:20 Total Bilirubin 0.50 mg/dL (0.2-1.0) 05/05/22 04:20 AST 21 Units/L (15-37) 05/05/22 04:20 ALT 21 Units/L (12-78) 05/05/22 04:20 Alkaline Phosphatase 74 Units/L (46-116) 05/05/22 04:20 Ammonia < 10 umol/L (11-32) L 05/01/22 11:56 Creatine Kinase 50 Units/L (26-192) 05/01/22 16:05 Troponin I High Sens 10.4 ng/L (4.0-60.0) 05/01/22 16:05 Total Protein 5.6 g/dL (6.4-8.2) L 05/05/22 04:20 Albumin 2.7 g/dL (3.4-5.0) L 05/05/22 04:20 Globulin 2.9 g/dL (2.5-4.5) 05/05/22 04:20 Albumin/Globulin Ratio 0.9 Ratio (1.1-2.1) L 05/05/22 04:20 Specimen Type Clean catch urine 05/01/22 11:39 Urine Color Yellow (YELLOW) 05/01/22 11:39 Urine Appearance Clear (CLEAR) 05/01/22 11:39 Urine pH 6.5 (5.0 - 8.0) 05/01/22 11:39 Ur Specific [place] 1.010 (1.000-1.030) 05/01/22 11:39 Urine Protein 1+ (NEGATIVE) 05/01/22 11:39 Urine Glucose (UA) Negative (NEGATIVE) 05/01/22 11:39 Urine Ketones Negative (NEGATIVE) 05/01/22 11:39 Urine Blood Negative (NEGATIVE) 05/01/22 11:39 Urine Nitrite Negative (NEGATIVE) 05/01/22 11:39 Urine Bilirubin Negative (NEGATIVE) 05/01/22 11:39 Urine Urobilinogen Normal (NORMAL) 05/01/22 11:39 Ur Leukocyte Esterase 3+ (NEGATIVE) 05/01/22 11:39 Urine RBC 0-2 /HPF (0-3) 05/01/22 11:39 Urine WBC 3-5 /HPF (0-5) 05/01/22 11:39 Ur Squamous Epith Cells Few /HPF (NEGATIVE) 05/01/22 11:39 Urine Bacteria Negative /HPF (NEGATIVE) 05/01/22 11:39 Urine Yeast Few /HPF (NEGATIVE) 05/01/22 11:39 Ur Culture Indicated? Yes/culture set up 05/01/22 11:39 Plan (1) Acute cystitis: Status: Acute Narrative Support Text: IV Levaquin. (2) Altered mental status: Status: Acute (3) Hypokalemia: Status: Acute Narrative Support Text: Replete per protocol.
--- NOTE | 2022-05-05 07:44 | PCM.PROG ---
Progress Note Progress Note for Day of Date of Exam: 05/04/22 Subjective Subjective: Pt is a 76 year old female past medical history of COPD and Hypertension admitted for failing outpatient treatment for cystitis and altered mental status. This morning patient is in bed. Her mentation has improved significantly, however she is complaining this morning of her left knee pain. On exam knee there is significant edema of left knee and tender to touch. No erythema or warmth observed. Labs/imaging: Wbc 12.5, Hgb 11.5, Plt 321, Na 133, K 4.1, Creatinine 0.81, Glucose 114, Urine culture greater than three organisms, contaminant. Will add Zosyn to antibiotic regimen. Order CT of left knee for further evaluation and start naproxen and tylenol for pain. Pt does report constipation, will start colace. Will get records from [facility] for urine culture. Pt is currently on IVF NS@75ml/h and antibiotics IV levaquin. Home medications have been resumed. Otherwise, will continue with current treatment plan. Continue to closely monitor and follow up lab in the morning. Past Medical Family Social History Allergies: Allergies codeine Allergy (Verified 05/01/22 10:21) Review of Systems ROS changes noted: see HPI Vital Signs and I&O's Vital Signs: Temperature 97.9 F Pulse Rate [Right Brachial] 76 Pulse Rate 88 Respiratory Rate 18 Blood Pressure [Left Arm] 130/59 Blood Pressure [Right Arm] 182/87 Blood Pressure 126/66 O2 Sat by Pulse Oximetry 100 Intake and Output: Intake & Output 05/02/22 05/03/22 05/04/22 05/05/22 23:59 23:59 23:59 23:59 Intake Total 2379 / 2379 1764 / 1764 2175 / 2175 1160 / 1160 Output Total 1100 / 1100 1500 / 1500 600 / 600 900 / 900 Balance 1279 / 1279 264 / 264 1575 / 1575 260 / 260 Physical Exam Oriented: Normal Eyes: Normal Ear: Normal Nose: Normal Throat: Normal Respiratory: Normal Cardiovascular: Normal : Normal Auscultation: Bowel Sounds: Normal Palpation: Normal Tenderness: Normal Skin: Normal Musculoskeletal: Normal Psychiatric: Normal Mood Description: Calm and Appropriate Affect: Normal Speech Pattern: Clear and Appropriate Laboratory and Diagnostics Result Diagrams: 05/05/22 04:20 05/05/22 04:20 Labs: 05/01/22 11:39 Urine,Clean Catch Urine Culture - Final Laboratory WBC 12.0 X10^3/uL (3.6-10.0) H 05/05/22 04:20 RBC 3.41 X10^6/uL (3.5-5.4) L 05/05/22 04:20 Hgb 10.5 g/dL (12.0-16.0) L 05/05/22 04:20 Hct 30.3 % (36.0-47.0) L 05/05/22 04:20 MCV 88.8 fL (80.0-100.0) 05/05/22 04:20 MCH 30.7 pg (27.0-34.0) 05/05/22 04:20 MCHC 34.5 g/dL (33.0-35.0) 05/05/22 04:20 RDW 13.1 % (11.6-16.5) 05/05/22 04:20 Plt Count 281 X10^3/uL (150.0-450.0) 05/05/22 04:20 MPV 7.7 fL (7.4-11.0) 05/05/22 04:20 Neut % (Auto) 63.5 % (42.0-75.0) 05/05/22 04:20 Lymph % (Auto) 19.6 % (21.0-51.0) L 05/05/22 04:20 [place] % (Auto) 15.4 % (0.0-13.0) H 05/05/22 04:20 Eos % (Auto) 1.2 % (0.9-2.9) 05/05/22 04:20 Baso % (Auto) 0.3 % (0.2-1.0) 05/05/22 04:20 Neut # (Auto) 7.6 x10^3/uL (2.2-4.8) H 05/05/22 04:20 Lymph # (Auto) 2.3 X10^3/uL (1.3-2.9) 05/05/22 04:20 [place] # (Auto) 1.8 x10^3/uL (0.3-0.8) H 05/05/22 04:20 Eos # (Auto) 0.1 x10^3/uL (0.0-0.2) 05/05/22 04:20 Baso # (Auto) 0.0 X10^3/uL (0.0-0.1) 05/05/22 04:20 Absolute Nucleated RBC 0.0 /100WBC 05/05/22 04:20 Sample Site Rra 05/01/22 11:15 ABG pH 7.500 (7.35-7.45) H 05/01/22 11:15 ABG pCO2 25.0 mmHg (35.0-45.0) L 05/01/22 11:15 ABG pO2 137.0 mmHg (80.0-100.0) H 05/01/22 11:15 ABG HCO3 19.5 mmol/L (22-26) L 05/01/22 11:15 ABG O2 Saturation 99.0 % (90-100) 05/01/22 11:15 ABG Base Excess -2.3 mmol/L (-2.0-2.0) L 05/01/22 11:15 Uriel Test Pos 05/01/22 11:15 A-a Gradient -19.0 mmHg 05/01/22 11:15 FiO2 21.0 05/01/22 11:15 Blood Gas Comments Pt nereida well eb 05/01/22 11:15 Sodium 134 mmol/L (136-145) L 05/05/22 04:20 Corrected Sodium TNP 05/05/22 04:20 Potassium 3.6 mmol/L (3.5-5.1) 05/05/22 04:20 Chloride 101 mmol/L (98-107) 05/05/22 04:20 Carbon Dioxide 24.3 mmol/L (21-32) 05/05/22 04:20 BUN 9 mg/dL (7-18) 05/05/22 04:20 Creatinine 0.75 mg/dL (0.55-1.02) 05/05/22 04:20 Est GFR (MDRD) Af Amer > 60 (>60) 05/05/22 04:20 Est GFR (MDRD) Non-Af > 60 (>60) 05/05/22 04:20 Glucose 110 mg/dL (65-99) H 05/05/22 04:20 Uric Acid 2.5 mg/dL (2.6-6.0) L 05/04/22 15:20 Calcium 8.2 mg/dL (8.5-10.1) L 05/05/22 04:20 Corrected Calcium 9.2 mg/dL (8.5-10.1) 05/05/22 04:20 Magnesium 2.6 mg/dL (2.0-2.9) 05/05/22 04:20 Total Bilirubin 0.50 mg/dL (0.2-1.0) 05/05/22 04:20 AST 21 Units/L (15-37) 05/05/22 04:20 ALT 21 Units/L (12-78) 05/05/22 04:20 Alkaline Phosphatase 74 Units/L (46-116) 05/05/22 04:20 Ammonia < 10 umol/L (11-32) L 05/01/22 11:56 Creatine Kinase 50 Units/L (26-192) 05/01/22 16:05 Troponin I High Sens 10.4 ng/L (4.0-60.0) 05/01/22 16:05 Total Protein 5.6 g/dL (6.4-8.2) L 05/05/22 04:20 Albumin 2.7 g/dL (3.4-5.0) L 05/05/22 04:20 Globulin 2.9 g/dL (2.5-4.5) 05/05/22 04:20 Albumin/Globulin Ratio 0.9 Ratio (1.1-2.1) L 05/05/22 04:20 Specimen Type Clean catch urine 05/01/22 11:39 Urine Color Yellow (YELLOW) 05/01/22 11:39 Urine Appearance Clear (CLEAR) 05/01/22 11:39 Urine pH 6.5 (5.0 - 8.0) 05/01/22 11:39 Ur Specific [place] 1.010 (1.000-1.030) 05/01/22 11:39 Urine Protein 1+ (NEGATIVE) 05/01/22 11:39 Urine Glucose (UA) Negative (NEGATIVE) 05/01/22 11:39 Urine Ketones Negative (NEGATIVE) 05/01/22 11:39 Urine Blood Negative (NEGATIVE) 05/01/22 11:39 Urine Nitrite Negative (NEGATIVE) 05/01/22 11:39 Urine Bilirubin Negative (NEGATIVE) 05/01/22 11:39 Urine Urobilinogen Normal (NORMAL) 05/01/22 11:39 Ur Leukocyte Esterase 3+ (NEGATIVE) 05/01/22 11:39 Urine RBC 0-2 /HPF (0-3) 05/01/22 11:39 Urine WBC 3-5 /HPF (0-5) 05/01/22 11:39 Ur Squamous Epith Cells Few /HPF (NEGATIVE) 05/01/22 11:39 Urine Bacteria Negative /HPF (NEGATIVE) 05/01/22 11:39 Urine Yeast Few /HPF (NEGATIVE) 05/01/22 11:39 Ur Culture Indicated? Yes/culture set up 05/01/22 11:39 Plan (1) Acute cystitis: Status: Acute Plan: IV antibiotics (2) Altered mental status: Status: Acute (3) Hypokalemia: Status: Acute
[2022-05-05] MEDS: PROTONIX TAB 40 MG PO SCH (08:42)
[2022-05-05] MEDS: K-DUR TAB 20 MEQ PO PRN (08:42)
[2022-05-05] MEDS: LOVENOX INJ 40 MG SYR SC SCH (08:42)
[2022-05-05] MEDS: LEVAQUIN PREMIX IV 500 MG 500 MG/100 ML BAG IV SCH (08:43)
[2022-05-05] MEDS: LIPITOR TAB 10 MG PO SCH (08:43)
[2022-05-05] MEDS: TOPROL XL PO SCH (08:43)
--- NOTE | 2022-05-05 11:42 | DR.CONSULT ---
CONSULT Consultation for Day of: Date: 05/05/22 Chief Complaint Chief Complaint: Left knee pain Allergies Allergies Allergy/AdvReac Type Severity Reaction Status Date / Time codeine Allergy Verified 05/01/22 10:21 History of Present Illness History of Present Illness: Dorothea is a 76 y/o F admitted to [facility] with the chief complaint of altered mental status and cystitis. I was consulted for Left knee pain. She has a tibial plateau fracture via imaging. Past Medical History Past Medical History: COPD and Hypertension Past Surgical History Surgical History: Appendectomy and Ortho Surgery Family History Family Medical History: Hypertension Social History Does patient currently use any type of tobacco product: No (quit 5 years ago) Have you used tobacco products in the last 12 months: No Type of Tobacco Use: None Does any household member use tobacco: No Alcohol Use: None Medications Home Medications: codeine Allergy (Verified 05/01/22 10:21) CONTINUE taking the following medications albuterol sulfate 2.5 mg/3 mL (0.083 %) solution for nebulization 2.5 mg inhalation Q4H PRN 05/01/22 [History] atorvastatin 10 mg tablet 10 mg PO DAILY 05/01/22 [History] cyanocobalamin (vitamin B-12) 1,000 mcg/mL injection solution 1,000 mcg IM Q2W 05/01/22 [History] fluticasone fur. 100 mcg-umeclid 62.5 mcg-vilant 25 mcg inhalat.powder (Trelegy Ellipta) 1 inh inhalation DAILY 05/01/22 [History] metoprolol succinate 25 mg tablet,extended release 24 hr 25 mg PO DAILY 05/01/22 [History] pantoprazole 40 mg tablet,delayed release 40 mg PO DAILY 05/01/22 [History] Physical Exam Vital Signs: Temperature 98.2 F Pulse Rate [Right Brachial] 84 Pulse Rate 88 Respiratory Rate 18 Blood Pressure [Left Arm] 135/62 Blood Pressure [Right Arm] 182/87 Blood Pressure 126/66 O2 Sat by Pulse Oximetry 94 Plan (1) Acute cystitis: Status: Acute (2) Altered mental status: Status: Acute (3) Hypokalemia: Status: Acute (4) Tibial plateau fracture, left: Status: Acute Narrative Support Text: I reviewed her xrays and CT imaging. She has severe tricompartmental OA and what looks to be a pre-existing well corticated calcific lesion in the proximal tibia. I agree with the differential of enchondroma vs bony infarct. This has likely been present for years as a benign lesion. Her tibial plateau fracture is minimally depressed and I recommend non-operative treatment for this. I re commend she remain in a knee immobilizer for now and be NWB to the LLE. She can follow up with us on an outpatient basis either here or in [place] for further assessment to ensure her fracture heals. For now no surgical indications. Please call with any questions. Dr Lou [phone]
[2022-05-05] MEDS: NAPROSYN PO PRN (11:47)
[2022-05-05] MEDS: PROVENTIL NEB TX 0.083% 2.5MG/ 3ML IN PRN (13:30)
[2022-05-05] MEDS: NS 1,000 ML IV 1,000 ML IV SCH ×3 (16:53→23:40)
[2022-05-05] MEDS: RESTORIL CAP 15 MG PO PRN (20:58)
--- NOTE | 2022-05-06 06:05 | RAD ---
HISTORYKnee painSTUDYPortable left knee two viewsCOMPARISONNoneFINDINGSThere is generalized osteopenia and degenerative narrowing of joint spaces. Soft tissue swelling is present around the joint.There is a large area of intramedullary sclerosis filling the proximal tibia. Sclerotic margins are fairly well defined with no aggressive features, periosteal reaction or pathologic fracture.IMPRESSIONUnusual intramedullary sclerotic lesion in the proximal tibia has benign characteristics. No acute component is demonstrated. Follow-up MRI recommended.Electronically signed by: SHELBY ALLRED (May 06, 2022 06:04:22)
[2022-05-06] MEDS: ZOSYN VIAL 3.375 GRAMS 3.375 G in NS 100 ML IV 100 ML IV SCH ×3 (06:06→21:09)
[2022-05-06 06:14] LABS: BASOPHILS % (AUTO) 0.3 % (0.2-1.0); EOSINOPHILS # (AUTO) 0.1 x10^3/uL (0.0-0.2); EOSINOPHILS % (AUTO) 0.9 % (0.9-2.9); HEMATOCRIT 30.9 % (36.0-47.0); HEMOGLOBIN 10.6 g/dL (12.0-16.0); LYMPHOCYTES # (AUTO) 1.5 X10^3/uL (1.3-2.9); LYMPHOCYTES % (AUTO) 10.2 % (21.0-51.0); MEAN CORPUSCULAR HEMOGLOBIN 30.9 pg (27.0-34.0); MEAN CORPUSCULAR HGB CONC 34.5 g/dL (33.0-35.0); MEAN CORPUSCULAR VOLUME 89.6 fL (80.0-100.0); MEAN PLATELET VOLUME 7.4 fL (7.4-11.0); MONOCYTES % (AUTO) 6.8 % (0.0-13.0); NEUTROPHILS # (AUTO) 12.1 x10^3/uL (2.2-4.8); NEUTROPHILS % (AUTO) 81.8 % (42.0-75.0); RED BLOOD COUNT 3.44 X10^6/uL (3.5-5.4); RED CELL DISTRIBUTION WIDTH 13.5 % (11.6-16.5); WHITE BLOOD COUNT 14.9 X10^3/uL (3.6-10.0)
[2022-05-06 06:35] LABS: ALANINE AMINOTRANSFERASE 29 Units/L (12-78); ALBUMIN 2.6 g/dL (3.4-5.0); ALKALINE PHOSPHATASE 85 Units/L (46-116); ASPARTATE AMINO TRANSFERASE 35 Units/L (15-37); BLOOD UREA NITROGEN 8 mg/dL (7-18); CALCIUM 8.1 mg/dL (8.5-10.1); CARBON DIOXIDE 23.6 mmol/L (21-32); CHLORIDE 103 mmol/L (98-107); COR CA(FOR HYPOALB) 9.2 mg/dL (8.5-10.1); CREATININE 0.75 mg/dL (0.55-1.02); SODIUM 133 mmol/L (136-145); TOTAL PROTEIN 5.8 g/dL (6.4-8.2); eGFR NON BLACK RACES > 60 (>60)
--- NOTE | 2022-05-06 08:37 | PCM.PROG ---
Progress Note Progress Note for Day of Date of Exam: 05/05/22 Subjective Subjective: Pt is a 76 year old female past medical history of COPD and Hypertension admitted for failing outpatient treatment for cystitis and altered mental status. This morning patient is in bed. Her mentation appears back to baseline, she is conversational. Her knee swelling has decreased from yesterday. Labs/imaging: Wbc 12, Hgb 10.5, Plt 281, Na 134, K 3.6, Creatinine 0.75, Glucose 110, Urine culture greater than three organisms, contaminant. CT of left knee was obtained that revealed: 1.Findings suggesting medial tibial plateau depressed fracture. 2. 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 Large joint effusion 4. Osteoarthritis. Pt is currently on IVF NS@75ml/h and antibiotics IV levaquin and Zosyn. Home medications have been resumed. Will consult ortho due to CT findings. Otherwise, will continue with current treatment plan. Continue to closely monitor and follow up labs/imaging. Past Medical Family Social History Allergies: Allergies codeine Allergy (Verified 05/01/22 10:21) Review of Systems ROS changes noted: see HPI Vital Signs and I&O's Vital Signs: Temperature 98.7 F Pulse Rate [Right Brachial] 96 Pulse Rate 89 Respiratory Rate 18 Blood Pressure [Left Arm] 175/80 Blood Pressure [Right Arm] 182/87 Blood Pressure 126/66 O2 Sat by Pulse Oximetry 98 Intake and Output: Intake & Output 05/03/22 05/04/22 05/05/22 05/06/22 23:59 23:59 23:59 23:59 Intake Total 1764 / 1764 2175 / 2175 4857 / 4857 555 / 555 Output Total 1500 / 1500 600 / 600 2100 / 2100 200 / 200 Balance 264 / 264 1575 / 1575 2757 / 2757 355 / 355 Physical Exam Oriented: Normal Eyes: Normal Ear: Normal Nose: Normal Throat: Normal Respiratory: Normal Cardiovascular: Normal : Normal Auscultation: Bowel Sounds: Normal Palpation: Normal Tenderness: Normal Skin: Normal Musculoskeletal: Normal Psychiatric: Normal Mood Description: Calm and Appropriate Affect: Normal Speech Pattern: Clear and Appropriate Laboratory and Diagnostics Result Diagrams: 05/06/22 05:49 05/06/22 05:49 Labs: 05/01/22 11:39 Urine,Clean Catch Urine Culture - Final Laboratory WBC 14.9 X10^3/uL (3.6-10.0) H 05/06/22 05:49 RBC 3.44 X10^6/uL (3.5-5.4) L 05/06/22 05:49 Hgb 10.6 g/dL (12.0-16.0) L 05/06/22 05:49 Hct 30.9 % (36.0-47.0) L 05/06/22 05:49 MCV 89.6 fL (80.0-100.0) 05/06/22 05:49 MCH 30.9 pg (27.0-34.0) 05/06/22 05:49 MCHC 34.5 g/dL (33.0-35.0) 05/06/22 05:49 RDW 13.5 % (11.6-16.5) 05/06/22 05:49 Plt Count 310 X10^3/uL (150.0-450.0) 05/06/22 05:49 MPV 7.4 fL (7.4-11.0) 05/06/22 05:49 Neut % (Auto) 81.8 % (42.0-75.0) H 05/06/22 05:49 Lymph % (Auto) 10.2 % (21.0-51.0) L 05/06/22 05:49 [place] % (Auto) 6.8 % (0.0-13.0) 05/06/22 05:49 Eos % (Auto) 0.9 % (0.9-2.9) 05/06/22 05:49 Baso % (Auto) 0.3 % (0.2-1.0) 05/06/22 05:49 Neut # (Auto) 12.1 x10^3/uL (2.2-4.8) H 05/06/22 05:49 Lymph # (Auto) 1.5 X10^3/uL (1.3-2.9) 05/06/22 05:49 [place] # (Auto) 1.0 x10^3/uL (0.3-0.8) H 05/06/22 05:49 Eos # (Auto) 0.1 x10^3/uL (0.0-0.2) 05/06/22 05:49 Baso # (Auto) 0.0 X10^3/uL (0.0-0.1) 05/06/22 05:49 Absolute Nucleated RBC 0.0 /100WBC 05/06/22 05:49 Sample Site Rra 05/01/22 11:15 ABG pH 7.500 (7.35-7.45) H 05/01/22 11:15 ABG pCO2 25.0 mmHg (35.0-45.0) L 05/01/22 11:15 ABG pO2 137.0 mmHg (80.0-100.0) H 05/01/22 11:15 ABG HCO3 19.5 mmol/L (22-26) L 05/01/22 11:15 ABG O2 Saturation 99.0 % (90-100) 05/01/22 11:15 ABG Base Excess -2.3 mmol/L (-2.0-2.0) L 05/01/22 11:15 Uriel Test Pos 05/01/22 11:15 A-a Gradient -19.0 mmHg 05/01/22 11:15 FiO2 21.0 05/01/22 11:15 Blood Gas Comments Pt nereida well eb 05/01/22 11:15 Sodium 133 mmol/L (136-145) L 05/06/22 05:49 Corrected Sodium TNP 05/06/22 05:49 Potassium 3.5 mmol/L (3.5-5.1) 05/06/22 05:49 Chloride 103 mmol/L (98-107) 05/06/22 05:49 Carbon Dioxide 23.6 mmol/L (21-32) 05/06/22 05:49 BUN 8 mg/dL (7-18) 05/06/22 05:49 Creatinine 0.75 mg/dL (0.55-1.02) 05/06/22 05:49 Est GFR (MDRD) Af Amer > 60 (>60) 05/06/22 05:49 Est GFR (MDRD) Non-Af > 60 (>60) 05/06/22 05:49 Glucose 101 mg/dL (65-99) H 05/06/22 05:49 Uric Acid 2.5 mg/dL (2.6-6.0) L 05/04/22 15:20 Calcium 8.1 mg/dL (8.5-10.1) L 05/06/22 05:49 Corrected Calcium 9.2 mg/dL (8.5-10.1) 05/06/22 05:49 Magnesium 2.6 mg/dL (2.0-2.9) 05/05/22 04:20 Total Bilirubin 0.50 mg/dL (0.2-1.0) 05/06/22 05:49 AST 35 Units/L (15-37) 05/06/22 05:49 ALT 29 Units/L (12-78) 05/06/22 05:49 Alkaline Phosphatase 85 Units/L (46-116) 05/06/22 05:49 Ammonia < 10 umol/L (11-32) L 05/01/22 11:56 Creatine Kinase 50 Units/L (26-192) 05/01/22 16:05 Troponin I High Sens 10.4 ng/L (4.0-60.0) 05/01/22 16:05 Total Protein 5.8 g/dL (6.4-8.2) L 05/06/22 05:49 Albumin 2.6 g/dL (3.4-5.0) L 05/06/22 05:49 Globulin 3.2 g/dL (2.5-4.5) 05/06/22 05:49 Albumin/Globulin Ratio 0.8 Ratio (1.1-2.1) L 05/06/22 05:49 Specimen Type Clean catch urine 05/01/22 11:39 Urine Color Yellow (YELLOW) 05/01/22 11:39 Urine Appearance Clear (CLEAR) 05/01/22 11:39 Urine pH 6.5 (5.0 - 8.0) 05/01/22 11:39 Ur Specific [place] 1.010 (1.000-1.030) 05/01/22 11:39 Urine Protein 1+ (NEGATIVE) 05/01/22 11:39 Urine Glucose (UA) Negative (NEGATIVE) 05/01/22 11:39 Urine Ketones Negative (NEGATIVE) 05/01/22 11:39 Urine Blood Negative (NEGATIVE) 05/01/22 11:39 Urine Nitrite Negative (NEGATIVE) 05/01/22 11:39 Urine Bilirubin Negative (NEGATIVE) 05/01/22 11:39 Urine Urobilinogen Normal (NORMAL) 05/01/22 11:39 Ur Leukocyte Esterase 3+ (NEGATIVE) 05/01/22 11:39 Urine RBC 0-2 /HPF (0-3) 05/01/22 11:39 Urine WBC 3-5 /HPF (0-5) 05/01/22 11:39 Ur Squamous Epith Cells Few /HPF (NEGATIVE) 05/01/22 11:39 Urine Bacteria Negative /HPF (NEGATIVE) 05/01/22 11:39 Urine Yeast Few /HPF (NEGATIVE) 05/01/22 11:39 Ur Culture Indicated? Yes/culture set up 05/01/22 11:39 Plan (1) Acute cystitis: Status: Acute Plan: IV antibiotics (2) Altered mental status: Status: Acute (3) Hypokalemia: Status: Acute (4) Tibial plateau fracture, left: Status: Acute
[2022-05-06] MEDS: LOVENOX INJ 40 MG SYR SC SCH (09:24)
[2022-05-06] MEDS: LEVAQUIN PREMIX IV 500 MG 500 MG/100 ML BAG IV SCH (09:24)
[2022-05-06] MEDS: TOPROL XL PO SCH (09:24)
[2022-05-06] MEDS: LIPITOR TAB 10 MG PO SCH (09:24)
[2022-05-06] MEDS: PROTONIX TAB 40 MG PO SCH (09:24)
--- NOTE | 2022-05-06 11:26 | PCM.PROG ---
Progress Note Progress Note for Day of Date of Exam: 05/06/22 Subjective Subjective: Pt is a 76 year old female past medical history of COPD and Hypertension admitted for failing outpatient treatment for cystitis, altered mental status, and medial tibial depressed fracture on left. This morning patient is resting comfortably in bed. She has no new concerns or complaints. Her mentation is back to baseline, she is conversational. Her knee is not in immobilizer. Labs/imaging: Wbc 14.9, Hgb 10.6, Plt 310, Na 133, K 3.5, Creatinine 0.75, Glucose 101, Urine culture greater than three organisms, contaminant. Pt is currently on IVF NS@75ml/h and antibiotics IV levaquin and Zosyn. Home medications have been resumed. Ortho was consulted due to CT findings, Dr Lou: recommend non-operative treatment for this, remain in a knee immobilizer for now and be NWB to the LLE. She can follow up with outpatient basis with ortho. Recommendations have been placed. 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 Otherwise, will continue with current treatment plan. Continue to closely monitor and follow up labs/imaging. Past Medical Family Social History Allergies: Allergies codeine Allergy (Verified 05/01/22 10:21) Review of Systems ROS changes noted: See HPI Vital Signs and I&O's Vital Signs: Temperature 98.7 F Pulse Rate [Right Brachial] 96 Pulse Rate 103 Respiratory Rate 18 Blood Pressure [Left Arm] 175/80 Blood Pressure [Right Arm] 182/87 Blood Pressure 126/66 O2 Sat by Pulse Oximetry 94 Intake and Output: Intake & Output 05/03/22 05/04/22 05/05/22 05/06/22 23:59 23:59 23:59 23:59 Intake Total 1764 / 1764 2175 / 2175 4857 / 4857 555 / 555 Output Total 1500 / 1500 600 / 600 2100 / 2100 200 / 200 Balance 264 / 264 1575 / 1575 2757 / 2757 355 / 355 Physical Exam Oriented: Normal Eyes: Normal Ear: Normal Nose: Normal Throat: Normal Respiratory: Normal Cardiovascular: Normal : Normal Auscultation: Bowel Sounds: Normal Palpation: Normal Tenderness: Normal Skin: Normal Musculoskeletal: Normal Psychiatric: Normal Mood Description: Calm and Appropriate Affect: Normal Speech Pattern: Clear and Appropriate Laboratory and Diagnostics Result Diagrams: 05/06/22 05:49 05/06/22 05:49 Labs: 05/01/22 11:39 Urine,Clean Catch Urine Culture - Final Laboratory WBC 14.9 X10^3/uL (3.6-10.0) H 05/06/22 05:49 RBC 3.44 X10^6/uL (3.5-5.4) L 05/06/22 05:49 Hgb 10.6 g/dL (12.0-16.0) L 05/06/22 05:49 Hct 30.9 % (36.0-47.0) L 05/06/22 05:49 MCV 89.6 fL (80.0-100.0) 05/06/22 05:49 MCH 30.9 pg (27.0-34.0) 05/06/22 05:49 MCHC 34.5 g/dL (33.0-35.0) 05/06/22 05:49 RDW 13.5 % (11.6-16.5) 05/06/22 05:49 Plt Count 310 X10^3/uL (150.0-450.0) 05/06/22 05:49 MPV 7.4 fL (7.4-11.0) 05/06/22 05:49 Neut % (Auto) 81.8 % (42.0-75.0) H 05/06/22 05:49 Lymph % (Auto) 10.2 % (21.0-51.0) L 05/06/22 05:49 [place] % (Auto) 6.8 % (0.0-13.0) 05/06/22 05:49 Eos % (Auto) 0.9 % (0.9-2.9) 05/06/22 05:49 Baso % (Auto) 0.3 % (0.2-1.0) 05/06/22 05:49 Neut # (Auto) 12.1 x10^3/uL (2.2-4.8) H 05/06/22 05:49 Lymph # (Auto) 1.5 X10^3/uL (1.3-2.9) 05/06/22 05:49 [place] # (Auto) 1.0 x10^3/uL (0.3-0.8) H 05/06/22 05:49 Eos # (Auto) 0.1 x10^3/uL (0.0-0.2) 05/06/22 05:49 Baso # (Auto) 0.0 X10^3/uL (0.0-0.1) 05/06/22 05:49 Absolute Nucleated RBC 0.0 /100WBC 05/06/22 05:49 Sample Site Rra 05/01/22 11:15 ABG pH 7.500 (7.35-7.45) H 05/01/22 11:15 ABG pCO2 25.0 mmHg (35.0-45.0) L 05/01/22 11:15 ABG pO2 137.0 mmHg (80.0-100.0) H 05/01/22 11:15 ABG HCO3 19.5 mmol/L (22-26) L 05/01/22 11:15 ABG O2 Saturation 99.0 % (90-100) 05/01/22 11:15 ABG Base Excess -2.3 mmol/L (-2.0-2.0) L 05/01/22 11:15 Uriel Test Pos 05/01/22 11:15 A-a Gradient -19.0 mmHg 05/01/22 11:15 FiO2 21.0 05/01/22 11:15 Blood Gas Comments Pt nereida well eb 05/01/22 11:15 Sodium 133 mmol/L (136-145) L 05/06/22 05:49 Corrected Sodium TNP 05/06/22 05:49 Potassium 3.5 mmol/L (3.5-5.1) 05/06/22 05:49 Chloride 103 mmol/L (98-107) 05/06/22 05:49 Carbon Dioxide 23.6 mmol/L (21-32) 05/06/22 05:49 BUN 8 mg/dL (7-18) 05/06/22 05:49 Creatinine 0.75 mg/dL (0.55-1.02) 05/06/22 05:49 Est GFR (MDRD) Af Amer > 60 (>60) 05/06/22 05:49 Est GFR (MDRD) Non-Af > 60 (>60) 05/06/22 05:49 Glucose 101 mg/dL (65-99) H 05/06/22 05:49 Uric Acid 2.5 mg/dL (2.6-6.0) L 05/04/22 15:20 Calcium 8.1 mg/dL (8.5-10.1) L 05/06/22 05:49 Corrected Calcium 9.2 mg/dL (8.5-10.1) 05/06/22 05:49 Magnesium 2.6 mg/dL (2.0-2.9) 05/05/22 04:20 Total Bilirubin 0.50 mg/dL (0.2-1.0) 05/06/22 05:49 AST 35 Units/L (15-37) 05/06/22 05:49 ALT 29 Units/L (12-78) 05/06/22 05:49 Alkaline Phosphatase 85 Units/L (46-116) 05/06/22 05:49 Ammonia < 10 umol/L (11-32) L 05/01/22 11:56 Creatine Kinase 50 Units/L (26-192) 05/01/22 16:05 Troponin I High Sens 10.4 ng/L (4.0-60.0) 05/01/22 16:05 Total Protein 5.8 g/dL (6.4-8.2) L 05/06/22 05:49 Albumin 2.6 g/dL (3.4-5.0) L 05/06/22 05:49 Globulin 3.2 g/dL (2.5-4.5) 05/06/22 05:49 Albumin/Globulin Ratio 0.8 Ratio (1.1-2.1) L 05/06/22 05:49 Specimen Type Clean catch urine 05/01/22 11:39 Urine Color Yellow (YELLOW) 05/01/22 11:39 Urine Appearance Clear (CLEAR) 05/01/22 11:39 Urine pH 6.5 (5.0 - 8.0) 05/01/22 11:39 Ur Specific [place] 1.010 (1.000-1.030) 05/01/22 11:39 Urine Protein 1+ (NEGATIVE) 05/01/22 11:39 Urine Glucose (UA) Negative (NEGATIVE) 05/01/22 11:39 Urine Ketones Negative (NEGATIVE) 05/01/22 11:39 Urine Blood Negative (NEGATIVE) 05/01/22 11:39 Urine Nitrite Negative (NEGATIVE) 05/01/22 11:39 Urine Bilirubin Negative (NEGATIVE) 05/01/22 11:39 Urine Urobilinogen Normal (NORMAL) 05/01/22 11:39 Ur Leukocyte Esterase 3+ (NEGATIVE) 05/01/22 11:39 Urine RBC 0-2 /HPF (0-3) 05/01/22 11:39 Urine WBC 3-5 /HPF (0-5) 05/01/22 11:39 Ur Squamous Epith Cells Few /HPF (NEGATIVE) 05/01/22 11:39 Urine Bacteria Negative /HPF (NEGATIVE) 05/01/22 11:39 Urine Yeast Few /HPF (NEGATIVE) 05/01/22 11:39 Ur Culture Indicated? Yes/culture set up 05/01/22 11:39 Plan (1) Acute cystitis: Status: Acute Plan: IV antibiotics (2) Altered mental status: Status: Acute (3) Hypokalemia: Status: Acute (4) Tibial plateau fracture, left: Status: Acute
[2022-05-06] MEDS: NS 1,000 ML IV 1,000 ML IV SCH ×2 (11:50→16:24)
[2022-05-06] MEDS: PROVENTIL NEB TX 0.083% 2.5MG/ 3ML IN PRN (13:22)
[2022-05-06] MEDS: RESTORIL CAP 15 MG PO PRN (21:09)
[2022-05-06] MEDS ORDERED: CATAPRES TAB 0.1 MG PO ONE (23:53)
[2022-05-07] MEDS: NS 1,000 ML IV 1,000 ML IV SCH ×4 (00:36→15:25)
[2022-05-07 05:19] LABS: BASOPHILS % (AUTO) 0.3 % (0.2-1.0); EOSINOPHILS # (AUTO) 0.2 x10^3/uL (0.0-0.2); EOSINOPHILS % (AUTO) 1.9 % (0.9-2.9); HEMATOCRIT 27.1 % (36.0-47.0); HEMOGLOBIN 9.3 g/dL (12.0-16.0); LYMPHOCYTES # (AUTO) 2.3 X10^3/uL (1.3-2.9); LYMPHOCYTES % (AUTO) 17.9 % (21.0-51.0); MEAN CORPUSCULAR HEMOGLOBIN 30.5 pg (27.0-34.0); MEAN CORPUSCULAR HGB CONC 34.4 g/dL (33.0-35.0); MEAN CORPUSCULAR VOLUME 88.9 fL (80.0-100.0); MEAN PLATELET VOLUME 7.3 fL (7.4-11.0); MONOCYTES # (AUTO) 1.4 x10^3/uL (0.3-0.8); MONOCYTES % (AUTO) 10.8 % (0.0-13.0); NEUTROPHILS # (AUTO) 8.8 x10^3/uL (2.2-4.8); NEUTROPHILS % (AUTO) 69.1 % (42.0-75.0); RED BLOOD COUNT 3.05 X10^6/uL (3.5-5.4); RED CELL DISTRIBUTION WIDTH 13.5 % (11.6-16.5); WHITE BLOOD COUNT 12.8 X10^3/uL (3.6-10.0)
[2022-05-07 06:04] LABS: ALANINE AMINOTRANSFERASE 34 Units/L (12-78); ALBUMIN 2.1 g/dL (3.4-5.0); ALKALINE PHOSPHATASE 90 Units/L (46-116); ASPARTATE AMINO TRANSFERASE 37 Units/L (15-37); BLOOD UREA NITROGEN 8 mg/dL (7-18); CARBON DIOXIDE 23.3 mmol/L (21-32); CHLORIDE 104 mmol/L (98-107); COR CA(FOR HYPOALB) 9.5 mg/dL (8.5-10.1); CREATININE 0.77 mg/dL (0.55-1.02); SODIUM 134 mmol/L (136-145); TOTAL PROTEIN 5.2 g/dL (6.4-8.2); eGFR NON BLACK RACES > 60 (>60)
[2022-05-07] MEDS: ZOSYN VIAL 3.375 GRAMS 3.375 G in NS 100 ML IV 100 ML IV SCH ×3 (06:10→21:00)
[2022-05-07] MEDS: PROTONIX TAB 40 MG PO SCH (09:14)
[2022-05-07] MEDS: TOPROL XL PO SCH (09:14)
[2022-05-07] MEDS: LIPITOR TAB 10 MG PO SCH (09:15)
[2022-05-07] MEDS: LEVAQUIN PREMIX IV 500 MG 500 MG/100 ML BAG IV SCH (09:15)
[2022-05-07] MEDS: LOVENOX INJ 40 MG SYR SC SCH (09:15)
[2022-05-07] MEDS: KLOR-CON PO PRN (09:16)
[2022-05-07] MEDS: MAGNESIUM SULFATE 1 GRAM/100 mL PREMIX 1 G/100 ML BAG IV PRN ×2 (10:43→11:52)
--- NOTE | 2022-05-07 11:06 | PCM.PROG ---
Progress Note Progress Note for Day of Date of Exam: 05/07/22 Subjective Subjective: Pt is a 76 year old female past medical history of COPD and Hypertension admitted for failing outpatient treatment for cystitis, altered mental status, and medial tibial depressed fracture on left. No concerns this morning. No acute events overnight. Her knee is in an immobilizer. Labs/imaging: Wbc 12.8, Hgb 9.3, Plt 309, Na 134, K 2.9, Creatinine 0.77, Glucose 102, Urine culture greater than three organisms, contaminant. Pt is currently on IVF NS@75ml/h and antibiotics IV levaquin and Zosyn. Home medications have been resumed. Ortho was consulted due to CT findings, Dr Lou: recommend non- operative treatment for this, remain in a knee immobilizer for now and be NWB to the LLE. She can follow up with outpatient basis with ortho. Recommendations have been placed. 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 Replete potassium per protocol. Otherwise, will continue with current treatment plan. Continue to closely monitor and follow up labs/imaging. Past Medical Family Social History Allergies: Allergies codeine Allergy (Verified 05/01/22 10:21) Review of Systems ROS changes noted: see HPI Vital Signs and I&O's Vital Signs: Temperature 98.6 F Pulse Rate [Right Brachial] 86 Pulse Rate 83 Respiratory Rate 20 Blood Pressure [Left Arm] 158/77 Blood Pressure [Right Arm] 182/87 Blood Pressure 126/66 O2 Sat by Pulse Oximetry 94 Intake and Output: Intake & Output 05/04/22 05/05/22 05/06/22 05/08/22 23:59 23:59 23:59 00:59 Intake Total 2175 / 2175 4857 / 4857 2937 / 2937 513 / 513 Output Total 600 / 600 2100 / 2100 500 / 500 100 / 100 Balance 1575 / 1575 2757 / 2757 2437 / 2437 413 / 413 Physical Exam Oriented: Normal Eyes: Normal Ear: Normal Nose: Normal Throat: Normal Respiratory: Normal Cardiovascular: Normal : Normal Auscultation: Bowel Sounds: Normal Palpation: Normal Tenderness: Normal Skin: Normal Musculoskeletal: Normal Psychiatric: Normal Mood Description: Calm and Appropriate Affect: Normal Speech Pattern: Clear and Appropriate Laboratory and Diagnostics Result Diagrams: 05/07/22 04:45 05/07/22 04:45 Labs: 05/01/22 11:39 Urine,Clean Catch Urine Culture - Final Laboratory WBC 12.8 X10^3/uL (3.6-10.0) H 05/07/22 04:45 RBC 3.05 X10^6/uL (3.5-5.4) L 05/07/22 04:45 Hgb 9.3 g/dL (12.0-16.0) L 05/07/22 04:45 Hct 27.1 % (36.0-47.0) L 05/07/22 04:45 MCV 88.9 fL (80.0-100.0) 05/07/22 04:45 MCH 30.5 pg (27.0-34.0) 05/07/22 04:45 MCHC 34.4 g/dL (33.0-35.0) 05/07/22 04:45 RDW 13.5 % (11.6-16.5) 05/07/22 04:45 Plt Count 309 X10^3/uL (150.0-450.0) 05/07/22 04:45 MPV 7.3 fL (7.4-11.0) L 05/07/22 04:45 Neut % (Auto) 69.1 % (42.0-75.0) 05/07/22 04:45 Lymph % (Auto) 17.9 % (21.0-51.0) L 05/07/22 04:45 [place] % (Auto) 10.8 % (0.0-13.0) 05/07/22 04:45 Eos % (Auto) 1.9 % (0.9-2.9) 05/07/22 04:45 Baso % (Auto) 0.3 % (0.2-1.0) 05/07/22 04:45 Neut # (Auto) 8.8 x10^3/uL (2.2-4.8) H 05/07/22 04:45 Lymph # (Auto) 2.3 X10^3/uL (1.3-2.9) 05/07/22 04:45 [place] # (Auto) 1.4 x10^3/uL (0.3-0.8) H 05/07/22 04:45 Eos # (Auto) 0.2 x10^3/uL (0.0-0.2) 05/07/22 04:45 Baso # (Auto) 0.0 X10^3/uL (0.0-0.1) 05/07/22 04:45 Absolute Nucleated RBC 0.0 /100WBC 05/07/22 04:45 Sample Site Rra 05/01/22 11:15 ABG pH 7.500 (7.35-7.45) H 05/01/22 11:15 ABG pCO2 25.0 mmHg (35.0-45.0) L 05/01/22 11:15 ABG pO2 137.0 mmHg (80.0-100.0) H 05/01/22 11:15 ABG HCO3 19.5 mmol/L (22-26) L 05/01/22 11:15 ABG O2 Saturation 99.0 % (90-100) 05/01/22 11:15 ABG Base Excess -2.3 mmol/L (-2.0-2.0) L 05/01/22 11:15 Uriel Test Pos 05/01/22 11:15 A-a Gradient -19.0 mmHg 05/01/22 11:15 FiO2 21.0 05/01/22 11:15 Blood Gas Comments Pt nereida well eb 05/01/22 11:15 Sodium 134 mmol/L (136-145) L 05/07/22 04:45 Corrected Sodium TNP 05/07/22 04:45 Potassium 2.9 mmol/L (3.5-5.1) L* 05/07/22 04:45 Chloride 104 mmol/L (98-107) 05/07/22 04:45 Carbon Dioxide 23.3 mmol/L (21-32) 05/07/22 04:45 BUN 8 mg/dL (7-18) 05/07/22 04:45 Creatinine 0.77 mg/dL (0.55-1.02) 05/07/22 04:45 Est GFR (MDRD) Af Amer > 60 (>60) 05/07/22 04:45 Est GFR (MDRD) Non-Af > 60 (>60) 05/07/22 04:45 Glucose 102 mg/dL (65-99) H 05/07/22 04:45 Uric Acid 2.5 mg/dL (2.6-6.0) L 05/04/22 15:20 Calcium 8.0 mg/dL (8.5-10.1) L 05/07/22 04:45 Corrected Calcium 9.5 mg/dL (8.5-10.1) 05/07/22 04:45 Magnesium 1.7 mg/dL (2.0-2.9) L 05/07/22 04:45 Total Bilirubin 0.50 mg/dL (0.2-1.0) 05/07/22 04:45 AST 37 Units/L (15-37) 05/07/22 04:45 ALT 34 Units/L (12-78) 05/07/22 04:45 Alkaline Phosphatase 90 Units/L (46-116) 05/07/22 04:45 Ammonia < 10 umol/L (11-32) L 05/01/22 11:56 Creatine Kinase 50 Units/L (26-192) 05/01/22 16:05 Troponin I High Sens 10.4 ng/L (4.0-60.0) 05/01/22 16:05 Total Protein 5.2 g/dL (6.4-8.2) L 05/07/22 04:45 Albumin 2.1 g/dL (3.4-5.0) L 05/07/22 04:45 Globulin 3.1 g/dL (2.5-4.5) 05/07/22 04:45 Albumin/Globulin Ratio 0.7 Ratio (1.1-2.1) L 05/07/22 04:45 Specimen Type Clean catch urine 05/01/22 11:39 Urine Color Yellow (YELLOW) 05/01/22 11:39 Urine Appearance Clear (CLEAR) 05/01/22 11:39 Urine pH 6.5 (5.0 - 8.0) 05/01/22 11:39 Ur Specific [place] 1.010 (1.000-1.030) 05/01/22 11:39 Urine Protein 1+ (NEGATIVE) 05/01/22 11:39 Urine Glucose (UA) Negative (NEGATIVE) 05/01/22 11:39 Urine Ketones Negative (NEGATIVE) 05/01/22 11:39 Urine Blood Negative (NEGATIVE) 05/01/22 11:39 Urine Nitrite Negative (NEGATIVE) 05/01/22 11:39 Urine Bilirubin Negative (NEGATIVE) 05/01/22 11:39 Urine Urobilinogen Normal (NORMAL) 05/01/22 11:39 Ur Leukocyte Esterase 3+ (NEGATIVE) 05/01/22 11:39 Urine RBC 0-2 /HPF (0-3) 05/01/22 11:39 Urine WBC 3-5 /HPF (0-5) 05/01/22 11:39 Ur Squamous Epith Cells Few /HPF (NEGATIVE) 05/01/22 11:39 Urine Bacteria Negative /HPF (NEGATIVE) 05/01/22 11:39 Urine Yeast Few /HPF (NEGATIVE) 05/01/22 11:39 Ur Culture Indicated? Yes/culture set up 05/01/22 11:39 Plan (1) Acute cystitis: Status: Acute Plan: IV antibiotics (2) Altered mental status: Status: Acute (3) Hypokalemia: Status: Acute (4) Tibial plateau fracture, left: Status: Acute
[2022-05-07] MEDS: PROVENTIL NEB TX 0.083% 2.5MG/ 3ML IN PRN (13:26)
[2022-05-07] MEDS: NAPROSYN PO PRN (15:07)
[2022-05-07] MEDS: RESTORIL CAP 15 MG PO PRN (20:49)
[2022-05-08] MEDS: NS 1,000 ML IV 1,000 ML IV SCH (05:00)
[2022-05-08] MEDS: ZOSYN VIAL 3.375 GRAMS 3.375 G in NS 100 ML IV 100 ML IV SCH ×3 (05:46→21:07)
[2022-05-08 05:51] LABS: BASOPHILS # (AUTO) 0.1 X10^3/uL (0.0-0.1); BASOPHILS % (AUTO) 0.5 % (0.2-1.0); EOSINOPHILS # (AUTO) 0.6 x10^3/uL (0.0-0.2); EOSINOPHILS % (AUTO) 5.2 % (0.9-2.9); HEMATOCRIT 27.9 % (36.0-47.0); HEMOGLOBIN 9.5 g/dL (12.0-16.0); LYMPHOCYTES # (AUTO) 2.8 X10^3/uL (1.3-2.9); LYMPHOCYTES % (AUTO) 24.6 % (21.0-51.0); MEAN CORPUSCULAR HEMOGLOBIN 30.7 pg (27.0-34.0); MEAN CORPUSCULAR HGB CONC 34.2 g/dL (33.0-35.0); MEAN CORPUSCULAR VOLUME 89.8 fL (80.0-100.0); MEAN PLATELET VOLUME 7.3 fL (7.4-11.0); MONOCYTES # (AUTO) 1.3 x10^3/uL (0.3-0.8); NEUTROPHILS # (AUTO) 6.7 x10^3/uL (2.2-4.8); NEUTROPHILS % (AUTO) 58.7 % (42.0-75.0); RED CELL DISTRIBUTION WIDTH 13.5 % (11.6-16.5); WHITE BLOOD COUNT 11.4 X10^3/uL (3.6-10.0)
[2022-05-08 06:03] LABS: ALANINE AMINOTRANSFERASE 28 Units/L (12-78); ALBUMIN 2.1 g/dL (3.4-5.0); ALKALINE PHOSPHATASE 83 Units/L (46-116); ASPARTATE AMINO TRANSFERASE 24 Units/L (15-37); BLOOD UREA NITROGEN 12 mg/dL (7-18); CALCIUM 7.9 mg/dL (8.5-10.1); CARBON DIOXIDE 23.4 mmol/L (21-32); CHLORIDE 105 mmol/L (98-107); COR CA(FOR HYPOALB) 9.4 mg/dL (8.5-10.1); CREATININE 0.82 mg/dL (0.55-1.02); MAGNESIUM 1.9 mg/dL (2.0-2.9); SODIUM 135 mmol/L (136-145); TOTAL PROTEIN 5.1 g/dL (6.4-8.2); eGFR NON BLACK RACES > 60 (>60)
[2022-05-08] MEDS: KLOR-CON PO PRN ×2 (07:08→11:54)
[2022-05-08] MEDS: LEVAQUIN PREMIX IV 500 MG 500 MG/100 ML BAG IV SCH (09:10)
[2022-05-08] MEDS: PROTONIX TAB 40 MG PO SCH (09:11)
[2022-05-08] MEDS: TOPROL XL PO SCH (09:11)
[2022-05-08] MEDS: LIPITOR TAB 10 MG PO SCH (09:11)
[2022-05-08] MEDS: LOVENOX INJ 40 MG SYR SC SCH (09:11)
[2022-05-08] MEDS: MAGNESIUM SULFATE 1 GRAM/100 mL PREMIX 1 G/100 ML BAG IV PRN ×2 (11:51→13:55)
[2022-05-08 11:52] VITALS: BMI 21.2
[2022-05-08] MEDS: RESTORIL CAP 15 MG PO PRN (21:07)
[2022-05-09] MEDS: ZOSYN VIAL 3.375 GRAMS 3.375 G in NS 100 ML IV 100 ML IV SCH ×3 (05:49→21:10)
[2022-05-09 06:19] LABS: BASOPHILS # (AUTO) 0.1 X10^3/uL (0.0-0.1); BASOPHILS % (AUTO) 0.7 % (0.2-1.0); EOSINOPHILS # (AUTO) 0.8 x10^3/uL (0.0-0.2); EOSINOPHILS % (AUTO) 6.3 % (0.9-2.9); HEMATOCRIT 32.2 % (36.0-47.0); HEMOGLOBIN 11.2 g/dL (12.0-16.0); LYMPHOCYTES # (AUTO) 2.8 X10^3/uL (1.3-2.9); LYMPHOCYTES % (AUTO) 21.3 % (21.0-51.0); MEAN CORPUSCULAR HEMOGLOBIN 30.8 pg (27.0-34.0); MEAN CORPUSCULAR HGB CONC 34.6 g/dL (33.0-35.0); MEAN CORPUSCULAR VOLUME 88.9 fL (80.0-100.0); MONOCYTES # (AUTO) 1.5 x10^3/uL (0.3-0.8); MONOCYTES % (AUTO) 11.4 % (0.0-13.0); NEUTROPHILS # (AUTO) 7.8 x10^3/uL (2.2-4.8); NEUTROPHILS % (AUTO) 60.3 % (42.0-75.0); RED BLOOD COUNT 3.62 X10^6/uL (3.5-5.4); RED CELL DISTRIBUTION WIDTH 13.5 % (11.6-16.5); WHITE BLOOD COUNT 12.9 X10^3/uL (3.6-10.0)
[2022-05-09 06:28] LABS: ALANINE AMINOTRANSFERASE 30 Units/L (12-78); ALBUMIN 2.7 g/dL (3.4-5.0); ALKALINE PHOSPHATASE 107 Units/L (46-116); ASPARTATE AMINO TRANSFERASE 32 Units/L (15-37); BLOOD UREA NITROGEN 12 mg/dL (7-18); CALCIUM 8.9 mg/dL (8.5-10.1); CHLORIDE 102 mmol/L (98-107); COR CA(FOR HYPOALB) 9.9 mg/dL (8.5-10.1); CREATININE 0.78 mg/dL (0.55-1.02); SODIUM 136 mmol/L (136-145); TOTAL PROTEIN 6.3 g/dL (6.4-8.2); eGFR NON BLACK RACES > 60 (>60)
[2022-05-09] MEDS: NS 1,000 ML IV 1,000 ML IV SCH ×4 (06:30→20:32)
--- NOTE | 2022-05-09 07:48 | PCM.PROG ---
Progress Note Progress Note for Day of Date of Exam: 05/08/22 Subjective Subjective: Pt is a 76 year old female past medical history of COPD and Hypertension admitted for failing outpatient treatment for cystitis, altered mental status, and medial tibial depressed fracture on left. She is resting comfortably in bed. Her knee is in an immobilizer. Labs/imaging: Wbc 11.4, Hgb 9.5, Plt 339, Na 135, K 3.5, Creatinine 0.82, Glucose 94. Pt is currently on IVF NS@75ml/h and antibiotics IV levaquin and Zosyn. Home medications have been resumed. Ortho was consulted due to CT findings, Dr Lou: recommend non- operative treatment for this, remain in a knee immobilizer for now and be NWB to the LLE. She can follow up with outpatient basis with ortho. Recommendations have been placed. 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 Otherwise, will continue with current treatment plan. Continue to closely monitor and follow up labs/imaging. Past Medical Family Social History Allergies: Allergies codeine Allergy (Verified 05/01/22 10:21) Review of Systems ROS changes noted: see HPI Vital Signs and I&O's Vital Signs: Temperature 98.4 F Pulse Rate [Right Brachial] 88 Pulse Rate 94 Respiratory Rate 20 Blood Pressure [Left Arm] 172/77 Blood Pressure [Right Arm] 182/87 Blood Pressure 126/66 O2 Sat by Pulse Oximetry 94 Intake and Output: Intake & Output 05/06/22 05/07/22 05/08/22 05/09/22 22:59 23:59 23:59 23:59 Intake Total 2720 / 2720 0 / 0 Output Total 3050 / 3050 1300 / 1300 Balance -330 / -330 -1300 / -1300 Physical Exam Oriented: Normal Eyes: Normal Ear: Normal Nose: Normal Throat: Normal Respiratory: Normal Cardiovascular: Normal : Normal Auscultation: Bowel Sounds: Normal Palpation: Normal Tenderness: Normal Skin: Normal Musculoskeletal: Normal Psychiatric: Normal Mood Description: Calm and Appropriate Affect: Normal Speech Pattern: Clear and Appropriate Laboratory and Diagnostics Result Diagrams: 05/09/22 05:46 05/09/22 05:46 Labs: 05/01/22 11:39 Urine,Clean Catch Urine Culture - Final Laboratory WBC 12.9 X10^3/uL (3.6-10.0) H 05/09/22 05:46 RBC 3.62 X10^6/uL (3.5-5.4) 05/09/22 05:46 Hgb 11.2 g/dL (12.0-16.0) L 05/09/22 05:46 Hct 32.2 % (36.0-47.0) L 05/09/22 05:46 MCV 88.9 fL (80.0-100.0) 05/09/22 05:46 MCH 30.8 pg (27.0-34.0) 05/09/22 05:46 MCHC 34.6 g/dL (33.0-35.0) 05/09/22 05:46 RDW 13.5 % (11.6-16.5) 05/09/22 05:46 Plt Count 416 X10^3/uL (150.0-450.0) 05/09/22 05:46 MPV 7.0 fL (7.4-11.0) L 05/09/22 05:46 Neut % (Auto) 60.3 % (42.0-75.0) 05/09/22 05:46 Lymph % (Auto) 21.3 % (21.0-51.0) 05/09/22 05:46 [place] % (Auto) 11.4 % (0.0-13.0) 05/09/22 05:46 Eos % (Auto) 6.3 % (0.9-2.9) H 05/09/22 05:46 Baso % (Auto) 0.7 % (0.2-1.0) 05/09/22 05:46 Neut # (Auto) 7.8 x10^3/uL (2.2-4.8) H 05/09/22 05:46 Lymph # (Auto) 2.8 X10^3/uL (1.3-2.9) 05/09/22 05:46 [place] # (Auto) 1.5 x10^3/uL (0.3-0.8) H 05/09/22 05:46 Eos # (Auto) 0.8 x10^3/uL (0.0-0.2) H 05/09/22 05:46 Baso # (Auto) 0.1 X10^3/uL (0.0-0.1) 05/09/22 05:46 Absolute Nucleated RBC 0.0 /100WBC 05/09/22 05:46 Sample Site Rra 05/01/22 11:15 ABG pH 7.500 (7.35-7.45) H 05/01/22 11:15 ABG pCO2 25.0 mmHg (35.0-45.0) L 05/01/22 11:15 ABG pO2 137.0 mmHg (80.0-100.0) H 05/01/22 11:15 ABG HCO3 19.5 mmol/L (22-26) L 05/01/22 11:15 ABG O2 Saturation 99.0 % (90-100) 05/01/22 11:15 ABG Base Excess -2.3 mmol/L (-2.0-2.0) L 05/01/22 11:15 Uriel Test Pos 05/01/22 11:15 A-a Gradient -19.0 mmHg 05/01/22 11:15 FiO2 21.0 05/01/22 11:15 Blood Gas Comments Pt nereida well eb 05/01/22 11:15 Sodium 136 mmol/L (136-145) 05/09/22 05:46 Corrected Sodium TNP 05/09/22 05:46 Potassium 3.5 mmol/L (3.5-5.1) 05/09/22 05:46 Chloride 102 mmol/L (98-107) 05/09/22 05:46 Carbon Dioxide 24.0 mmol/L (21-32) 05/09/22 05:46 BUN 12 mg/dL (7-18) 05/09/22 05:46 Creatinine 0.78 mg/dL (0.55-1.02) 05/09/22 05:46 Est GFR (MDRD) Af Amer > 60 (>60) 05/09/22 05:46 Est GFR (MDRD) Non-Af > 60 (>60) 05/09/22 05:46 Glucose 89 mg/dL (65-99) 05/09/22 05:46 Uric Acid 2.5 mg/dL (2.6-6.0) L 05/04/22 15:20 Calcium 8.9 mg/dL (8.5-10.1) 05/09/22 05:46 Corrected Calcium 9.9 mg/dL (8.5-10.1) 05/09/22 05:46 Magnesium 2.0 mg/dL (2.0-2.9) 05/09/22 05:46 Total Bilirubin 0.40 mg/dL (0.2-1.0) 05/09/22 05:46 AST 32 Units/L (15-37) 05/09/22 05:46 ALT 30 Units/L (12-78) 05/09/22 05:46 Alkaline Phosphatase 107 Units/L (46-116) 05/09/22 05:46 Ammonia < 10 umol/L (11-32) L 05/01/22 11:56 Creatine Kinase 50 Units/L (26-192) 05/01/22 16:05 Troponin I High Sens 10.4 ng/L (4.0-60.0) 05/01/22 16:05 Total Protein 6.3 g/dL (6.4-8.2) L 05/09/22 05:46 Albumin 2.7 g/dL (3.4-5.0) L 05/09/22 05:46 Globulin 3.6 g/dL (2.5-4.5) 05/09/22 05:46 Albumin/Globulin Ratio 0.8 Ratio (1.1-2.1) L 05/09/22 05:46 Specimen Type Clean catch urine 05/01/22 11:39 Urine Color Yellow (YELLOW) 05/01/22 11:39 Urine Appearance Clear (CLEAR) 05/01/22 11:39 Urine pH 6.5 (5.0 - 8.0) 05/01/22 11:39 Ur Specific [place] 1.010 (1.000-1.030) 05/01/22 11:39 Urine Protein 1+ (NEGATIVE) 05/01/22 11:39 Urine Glucose (UA) Negative (NEGATIVE) 05/01/22 11:39 Urine Ketones Negative (NEGATIVE) 05/01/22 11:39 Urine Blood Negative (NEGATIVE) 05/01/22 11:39 Urine Nitrite Negative (NEGATIVE) 05/01/22 11:39 Urine Bilirubin Negative (NEGATIVE) 05/01/22 11:39 Urine Urobilinogen Normal (NORMAL) 05/01/22 11:39 Ur Leukocyte Esterase 3+ (NEGATIVE) 05/01/22 11:39 Urine RBC 0-2 /HPF (0-3) 05/01/22 11:39 Urine WBC 3-5 /HPF (0-5) 05/01/22 11:39 Ur Squamous Epith Cells Few /HPF (NEGATIVE) 05/01/22 11:39 Urine Bacteria Negative /HPF (NEGATIVE) 05/01/22 11:39 Urine Yeast Few /HPF (NEGATIVE) 05/01/22 11:39 Ur Culture Indicated? Yes/culture set up 05/01/22 11:39 Plan (1) Acute cystitis: Status: Acute Plan: IV antibiotics (2) Altered mental status: Status: Acute (3) Hypokalemia: Status: Acute (4) Tibial plateau fracture, left: Status: Acute
[2022-05-09] MEDS: PROTONIX TAB 40 MG PO SCH (08:44)
[2022-05-09] MEDS: LIPITOR TAB 10 MG PO SCH (08:44)
[2022-05-09] MEDS: LEVAQUIN PREMIX IV 500 MG 500 MG/100 ML BAG IV SCH (08:44)
[2022-05-09] MEDS: LOVENOX INJ 40 MG SYR SC SCH (08:44)
[2022-05-09] MEDS: K-DUR TAB 20 MEQ PO PRN (08:44)
[2022-05-09] MEDS: TOPROL XL PO SCH (08:45)
[2022-05-09] MEDS: PROVENTIL NEB TX 0.083% 2.5MG/ 3ML IN PRN (08:50)
[2022-05-09] MEDS: NORVASC TAB 5 MG PO SCH (14:11)
[2022-05-09] MEDS: NAPROSYN PO PRN (14:54)
[2022-05-09] MEDS ORDERED: CATAPRES TAB 0.1 MG PO ONE (16:21)
[2022-05-09] MEDS ORDERED: CATAPRES TAB 0.1 MG ONE (16:47)
--- NOTE | 2022-05-09 16:57 | EKG ---
Test Reason : Elevated BP - HTN protocol Blood Pressure : */* mmHG Vent. Rate : 91 BPM Atrial Rate : 91 BPM P-R Int : 188 ms QRS Dur : 78 ms QT Int : 374 ms P-R-T Axes : 62 -17 55 degrees QTc Int : 460 ms Sinus rhythm with premature atrial complexes Inferior infarct , age undetermined Anterior infarct , age undetermined Abnormal ECG When compared with ECG of 01-MAY-2022 22:59, premature atrial complexes are now present Anterior infarct is now present T wave inversion now evident in Anterior leads Referred By: Confirmed By:
[2022-05-09] MEDS ORDERED: APRESOLINE INJ 20 MG VIAL IVP PRN (17:10)
[2022-05-09] MEDS: RESTORIL CAP 15 MG PO PRN (20:22)
--- NOTE | 2022-05-09 22:15 | PCM.PROG ---
Progress Note Progress Note for Day of Date of Exam: 05/09/22 Subjective Subjective: Pt is a 76 year old female past medical history of COPD and Hypertension admitted for failing outpatient treatment for cystitis, altered mental status, and medial tibial depressed fracture on left. She is resting comfortably in bed. Her knee is in an immobilizer. No surgical treatment recomm ended as per Ortho. Patient's knee pain has been well-controlled. Patient has a hx of chronic joint pain and sees pain management. Her knee fracture appears to be pathologic due to severe tricompartmental OA. Discussed fall precautions with patient and her and advised to always call nurse for assistance with moving. Patient's has been the primary caregiver and does assist with transfers without asking for nursing assistance. Labs/imaging: reviewed Plan: Continue current treatment with IV antibiotics. Change IVF to KVO as patient is tolerating PO intake. Continue to follow ortho recommendations and PT recommendations. Continue knee immobilizer. Patient will follow up with Ortho as outpatient. Patient currently lives with elderly who is not able to take care of the patient at home. Options have been discussed with patient and her . CM working on possible rehab placement, but does not want patient to go to outside facility. CM has sent referrals to rehab. Will need to discuss with since he is not able to take care of her at home. This has been explained in detail several times and all options have been discussed. Patient is medically stable to be discharged to rehab for PT/OT. CM discussed swing bed option but would only be for very limited time and patient will still need to be placed in rehab after that stay expires. Will continue to work with patient on discharge planning. Past Medical Family Social History Allergies: Allergies codeine Allergy (Verified 05/01/22 10:21) Vital Signs and I&O's Vital Signs: Temperature 97.9 F Pulse Rate [Right Brachial] 77 Pulse Rate 85 Respiratory Rate 20 Blood Pressure [Left Arm] 144/64 Blood Pressure [Right Arm] 182/87 Blood Pressure 126/66 O2 Sat by Pulse Oximetry 94 Intake and Output: Intake & Output 05/06/22 05/07/22 05/08/22 05/09/22 22:59 23:59 23:59 23:59 Intake Total 2720 / 2720 1547 / 1547 Output Total 3050 / 3050 2300 / 2300 Balance -330 / -330 -753 / -753 Physical Exam Oriented: Normal Eyes: Normal Ear: Normal Nose: Normal Throat: Normal Respiratory: Normal Cardiovascular: Normal : Normal Auscultation: Bowel Sounds: Normal Tenderness: Normal Skin: Normal Musculoskeletal: Left and Knee (mild swelling, no erythema or warmth, limited ROM) Psychiatric: Normal Mood Description: Calm and Appropriate Affect: Normal Speech Pattern: Clear and Appropriate Laboratory and Diagnostics Result Diagrams: 05/09/22 05:46 05/09/22 05:46 Labs: 05/01/22 11:39 Urine,Clean Catch Urine Culture - Final Laboratory WBC 12.9 X10^3/uL (3.6-10.0) H 05/09/22 05:46 RBC 3.62 X10^6/uL (3.5-5.4) 05/09/22 05:46 Hgb 11.2 g/dL (12.0-16.0) L 05/09/22 05:46 Hct 32.2 % (36.0-47.0) L 05/09/22 05:46 MCV 88.9 fL (80.0-100.0) 05/09/22 05:46 MCH 30.8 pg (27.0-34.0) 05/09/22 05:46 MCHC 34.6 g/dL (33.0-35.0) 05/09/22 05:46 RDW 13.5 % (11.6-16.5) 05/09/22 05:46 Plt Count 416 X10^3/uL (150.0-450.0) 05/09/22 05:46 MPV 7.0 fL (7.4-11.0) L 05/09/22 05:46 Neut % (Auto) 60.3 % (42.0-75.0) 05/09/22 05:46 Lymph % (Auto) 21.3 % (21.0-51.0) 05/09/22 05:46 [place] % (Auto) 11.4 % (0.0-13.0) 05/09/22 05:46 Eos % (Auto) 6.3 % (0.9-2.9) H 05/09/22 05:46 Baso % (Auto) 0.7 % (0.2-1.0) 05/09/22 05:46 Neut # (Auto) 7.8 x10^3/uL (2.2-4.8) H 05/09/22 05:46 Lymph # (Auto) 2.8 X10^3/uL (1.3-2.9) 05/09/22 05:46 [place] # (Auto) 1.5 x10^3/uL (0.3-0.8) H 05/09/22 05:46 Eos # (Auto) 0.8 x10^3/uL (0.0-0.2) H 05/09/22 05:46 Baso # (Auto) 0.1 X10^3/uL (0.0-0.1) 05/09/22 05:46 Absolute Nucleated RBC 0.0 /100WBC 05/09/22 05:46 Sample Site Rra 05/01/22 11:15 ABG pH 7.500 (7.35-7.45) H 05/01/22 11:15 ABG pCO2 25.0 mmHg (35.0-45.0) L 05/01/22 11:15 ABG pO2 137.0 mmHg (80.0-100.0) H 05/01/22 11:15 ABG HCO3 19.5 mmol/L (22-26) L 05/01/22 11:15 ABG O2 Saturation 99.0 % (90-100) 05/01/22 11:15 ABG Base Excess -2.3 mmol/L (-2.0-2.0) L 05/01/22 11:15 Uriel Test Pos 05/01/22 11:15 A-a Gradient -19.0 mmHg 05/01/22 11:15 FiO2 21.0 05/01/22 11:15 Blood Gas Comments Pt nereida well eb 05/01/22 11:15 Sodium 136 mmol/L (136-145) 05/09/22 05:46 Corrected Sodium TNP 05/09/22 05:46 Potassium 3.5 mmol/L (3.5-5.1) 05/09/22 05:46 Chloride 102 mmol/L (98-107) 05/09/22 05:46 Carbon Dioxide 24.0 mmol/L (21-32) 05/09/22 05:46 BUN 12 mg/dL (7-18) 05/09/22 05:46 Creatinine 0.78 mg/dL (0.55-1.02) 05/09/22 05:46 Est GFR (MDRD) Af Amer > 60 (>60) 05/09/22 05:46 Est GFR (MDRD) Non-Af > 60 (>60) 05/09/22 05:46 Glucose 89 mg/dL (65-99) 05/09/22 05:46 Uric Acid 2.5 mg/dL (2.6-6.0) L 05/04/22 15:20 Calcium 8.9 mg/dL (8.5-10.1) 05/09/22 05:46 Corrected Calcium 9.9 mg/dL (8.5-10.1) 05/09/22 05:46 Magnesium 2.0 mg/dL (2.0-2.9) 05/09/22 05:46 Total Bilirubin 0.40 mg/dL (0.2-1.0) 05/09/22 05:46 AST 32 Units/L (15-37) 05/09/22 05:46 ALT 30 Units/L (12-78) 05/09/22 05:46 Alkaline Phosphatase 107 Units/L (46-116) 05/09/22 05:46 Ammonia < 10 umol/L (11-32) L 05/01/22 11:56 Creatine Kinase 50 Units/L (26-192) 05/01/22 16:05 Troponin I High Sens 31.7 ng/L (4.0-60.0) 05/09/22 17:27 Total Protein 6.3 g/dL (6.4-8.2) L 05/09/22 05:46 Albumin 2.7 g/dL (3.4-5.0) L 05/09/22 05:46 Globulin 3.6 g/dL (2.5-4.5) 05/09/22 05:46 Albumin/Globulin Ratio 0.8 Ratio (1.1-2.1) L 05/09/22 05:46 Specimen Type Clean catch urine 05/01/22 11:39 Urine Color Yellow (YELLOW) 05/01/22 11:39 Urine Appearance Clear (CLEAR) 05/01/22 11:39 Urine pH 6.5 (5.0 - 8.0) 05/01/22 11:39 Ur Specific [place] 1.010 (1.000-1.030) 05/01/22 11:39 Urine Protein 1+ (NEGATIVE) 05/01/22 11:39 Urine Glucose (UA) Negative (NEGATIVE) 05/01/22 11:39 Urine Ketones Negative (NEGATIVE) 05/01/22 11:39 Urine Blood Negative (NEGATIVE) 05/01/22 11:39 Urine Nitrite Negative (NEGATIVE) 05/01/22 11:39 Urine Bilirubin Negative (NEGATIVE) 05/01/22 11:39 Urine Urobilinogen Normal (NORMAL) 05/01/22 11:39 Ur Leukocyte Esterase 3+ (NEGATIVE) 05/01/22 11:39 Urine RBC 0-2 /HPF (0-3) 05/01/22 11:39 Urine WBC 3-5 /HPF (0-5) 05/01/22 11:39 Ur Squamous Epith Cells Few /HPF (NEGATIVE) 05/01/22 11:39 Urine Bacteria Negative /HPF (NEGATIVE) 05/01/22 11:39 Urine Yeast Few /HPF (NEGATIVE) 05/01/22 11:39 Ur Culture Indicated? Yes/culture set up 05/01/22 11:39 Plan (1) Acute cystitis: Status: Acute Plan: IV antibiotics (2) Altered mental status: Status: Acute (3) Hypokalemia: Status: Acute (4) Tibial plateau fracture, left: Status: Acute
[2022-05-10] MEDS: ZOSYN VIAL 3.375 GRAMS 3.375 G in NS 100 ML IV 100 ML IV SCH ×2 (05:16→13:17)
[2022-05-10 06:27] LABS: BASOPHILS # (AUTO) 0.1 X10^3/uL (0.0-0.1); BASOPHILS % (AUTO) 0.8 % (0.2-1.0); EOSINOPHILS # (AUTO) 0.7 x10^3/uL (0.0-0.2); HEMATOCRIT 29.3 % (36.0-47.0); HEMOGLOBIN 10.2 g/dL (12.0-16.0); LYMPHOCYTES # (AUTO) 2.9 X10^3/uL (1.3-2.9); LYMPHOCYTES % (AUTO) 32.3 % (21.0-51.0); MEAN CORPUSCULAR HGB CONC 34.9 g/dL (33.0-35.0); MEAN CORPUSCULAR VOLUME 88.9 fL (80.0-100.0); MONOCYTES # (AUTO) 1.2 x10^3/uL (0.3-0.8); MONOCYTES % (AUTO) 13.4 % (0.0-13.0); NEUTROPHILS # (AUTO) 4.1 x10^3/uL (2.2-4.8); NEUTROPHILS % (AUTO) 45.5 % (42.0-75.0); RED CELL DISTRIBUTION WIDTH 13.5 % (11.6-16.5); WHITE BLOOD COUNT 9.1 X10^3/uL (3.6-10.0)
[2022-05-10 06:35] LABS: ALANINE AMINOTRANSFERASE 26 Units/L (12-78); ALBUMIN 2.5 g/dL (3.4-5.0); ALKALINE PHOSPHATASE 93 Units/L (46-116); ASPARTATE AMINO TRANSFERASE 25 Units/L (15-37); BLOOD UREA NITROGEN 12 mg/dL (7-18); CALCIUM 8.7 mg/dL (8.5-10.1); CARBON DIOXIDE 26.5 mmol/L (21-32); CHLORIDE 103 mmol/L (98-107); COR CA(FOR HYPOALB) 9.9 mg/dL (8.5-10.1); CREATININE 0.79 mg/dL (0.55-1.02); SODIUM 140 mmol/L (136-145); TOTAL PROTEIN 5.9 g/dL (6.4-8.2); eGFR NON BLACK RACES > 60 (>60)
[2022-05-10] MEDS: PROTONIX TAB 40 MG PO SCH (08:36)
[2022-05-10] MEDS: LIPITOR TAB 10 MG PO SCH (08:36)
[2022-05-10] MEDS: LOVENOX INJ 40 MG SYR SC SCH (08:36)
[2022-05-10] MEDS: LEVAQUIN PREMIX IV 500 MG 500 MG/100 ML BAG IV SCH (08:36)
[2022-05-10] MEDS: TOPROL XL PO SCH (08:37)
[2022-05-10] MEDS: NORVASC TAB 5 MG PO SCH (08:47)
[2022-05-10] MEDS ORDERED: NORVASC TAB 10 MG PO SCH (09:00)
[2022-05-10] MEDS ORDERED: ZESTRIL TAB 5 MG PO SCH (09:00)
[2022-05-10] MEDS: NS 1,000 ML IV 1,000 ML IV SCH (09:13)
[2022-05-10] MEDS: PROVENTIL NEB TX 0.083% 2.5MG/ 3ML IN PRN (09:20)
[2022-05-10 12:16] VITALS: BP 143/65
--- NOTE | 2022-05-10 14:35 | RAD ---
CHEST, 1 VIEWHISTORY: TRANSFER TO REHAB, NEEDED PRE-ADMIT CHEST XRAYStudy: AP view of the chest.Comparison:NoneFindings:Cardiomegaly. No focal consolidations, pleural effusions or pneumothorax. Osseous structures demonstrate no acute abnormality. Bilateral hyperexpansion and interstitial prominence.IMPRESSION:1. No acute cardiopulmonary process.2. Findings of COPD.Electronically signed by: LIA WALSH (May 10, 2022 14:34:13)
== END 2022-05-10 15:00 | DRG 690 ==
LOC: ER 09:59 → MED/SURG 09:59
PROVIDERS: ADMIT Family Medicine; ATTEND Family Medicine
DX: I10 Essential (primary) hypertension; N30.00 Acute cystitis without hematuria; M84.462A Pathological fracture, left tibia, initial encounter for fracture; M19.90 Unspecified osteoarthritis, unspecified site; J44.9 Chronic obstructive pulmonary disease, unspecified; Z20.822 Contact with and (suspected) exposure to COVID-19; R41.82 Altered mental status, unspecified; K59.09 Other constipation; M25.562 Pain in left knee; E87.6 Hypokalemia